=== PATIENT | female | born 1980 | race Hispanic/Latino ===

== ENCOUNTER 2016-06-14 13:48 | Emergency (ER) | payer OTHER ==
[~2016-06-14] VITALS: Ht 175.3 cm; Wt 90.7 kg
[~2016-06-14 13:48] MED LIST: IBUP80TA PO; MOM30SS PO; TYLE325T5 PO
[2016-06-14] MEDS ORDERED: vitamin d (14:05)
[2016-06-14] MEDS ORDERED: ASCO25TA PO (14:05)
[2016-06-14] MEDS ORDERED: MULT1TAB18 PO (14:05)
[2016-06-14] MEDS ORDERED: NORCO, ANEXSIA 5/325MG TABLET (HYDROcodone/ACETAMINOPHEN) PO ONE (14:30)
--- NOTE | 2016-06-14 14:55 | REP ---
Left hip two views: Comparison is the AP view of the pelvis dated 08/15/2015. Mineralization and joint space are normal. There is no fracture or dislocation. No calcifications or foreign bodies. There is an IUD in the pelvis, unchanged. Impression: Negative left hip. Signed by Fawad Steen MD 06/14/2016 02:46 P
[2016-06-14] MEDS ORDERED: ULTR50TA PO (14:56)
--- NOTE | 2016-06-14 15:02 | REP ---
LEFT KNEE SERIES: Two views AP and lateral. HISTORY: Trauma. FINDINGS: AP and lateral views of the left knee demonstrate normal bones, joints, and soft tissues. No fracture or subluxation is seen. IMPRESSION: Negative left knee radiographs. Two-view study. Signed by Elias Lucio MD 06/14/2016 03:18 P
[2016-06-14 15:07] VITALS: BP 116/83
== END 2016-06-14 15:11 | disposition home or self-care (01) ==
LOC: M ED 14:35
DX: S70.02XA Contusion of left hip, initial encounter (principal); S80.02XA Contusion of left knee, initial encounter; V43.52XA Car driver injured in collision with other type car in traffic accident, initial encounter; Y92.410 Unspecified street and highway as the place of occurrence of the external cause; Y93.9 Activity, unspecified; Y99.9 Unspecified external cause status; Z98.84 Bariatric surgery status; Z79.899 Other long term (current) drug therapy

== ENCOUNTER 2016-06-15 21:56 | Emergency (ER) | payer OTHER ==
[~2016-06-15] VITALS: Ht 175.3 cm; Wt 89.8 kg
[~2016-06-15 21:56] MED LIST changes: +ASCO25TA PO; +MULT1TAB18 PO; +ULTR50TA PO; +vitamin d
[2016-06-15 21:57] VITALS: BP 129/82
[2016-06-16] MEDS ORDERED: ONDANSETRON 4 MG ORAL DISINTEGRATING TAB (S0181) PO ONE (00:45)
[2016-06-16] MEDS ORDERED: NORCO, ANEXSIA 5/325MG TABLET (HYDROcodone/ACETAMINOPHEN) PO ONE (00:45)
[2016-06-16] MEDS ORDERED: HYDR-3713 PO (00:48)
[2016-06-16] MEDS ORDERED: CYCL10TA PO (00:50)
== END 2016-06-16 01:33 | disposition home or self-care (01) ==
LOC: M ED 22:52
DX: M54.2 Cervicalgia (principal); R51 Headache; S70.02XA Contusion of left hip, initial encounter; S80.02XA Contusion of left knee, initial encounter; V49.40XA Driver injured in collision with unspecified motor vehicles in traffic accident, initial encounter; Y92.410 Unspecified street and highway as the place of occurrence of the external cause; Y93.89 Activity, other specified; Y99.9 Unspecified external cause status

== ENCOUNTER → 2016-06-23 | Outpatient (CLI) | payer OTHER ==
[~2016-06-23] MED LIST changes: +CYCL10TA PO; +HYDR-3713 PO
--- NOTE | 2016-06-24 09:58 | REP ---
MRI LEFT KNEE: TECHNIQUE: Axial proton density fat saturation, sagittal proton density T2 STIR, water excitation, coronal proton density, proton density fat saturation. Menisci show no evidence of a tear. The cruciate and collateral ligaments are intact. The extensor mechanism is intact. Medial and lateral patellar retinacula are intact. There is very mild global chondromalacia without osteochrondral defect. There is no bone marrow edema or occult fracture. There is a normal amount of joint fluid. There is no popliteal cyst. IMPRESSION: Very mild global chondromalacia. No evidence of meniscal tear. No evidence of ligament tear. No acute abnormality. Signed by Fawad Paige MD 06/24/2016 01:24 P
== END ==
LOC: M RAD 17:17
PROVIDERS: ATTEND Family Medicine
DX: M25.562 Pain in left knee (principal)

== ENCOUNTER → 2016-10-24 | Outpatient (REF) | payer OTHER ==
[~2016-10-24] MED LIST changes: -ULTR50TA PO; +ULTR50TA8 PO
== END ==
LOC: M LAB REF 10:07
PROVIDERS: ATTEND Physician Assistant Medical
DX: N39.0 Urinary tract infection, site not specified (principal)

== ENCOUNTER 2017-04-28 09:45 | Emergency (ER) | payer OTHER ==
[2017-04-28] MEDS: KETOROLAC 60 MG/2 ML VIAL (J1885) IM (10:29)
== END 2017-04-28 10:50 | disposition home or self-care (01) ==
LOC: M ED 09:45
DX: M54.5 Low back pain (principal); M25.552 Pain in left hip; R29.6 Repeated falls; I10 Essential (primary) hypertension; Z98.84 Bariatric surgery status
CPT/HCPCS: J1885

== ENCOUNTER 2017-06-22 05:51 | Emergency (ER) | payer OTHER ==
[2017-06-22] MEDS: NITROGLYCERIN 0.4 MG SUBL TABLET SL (06:14)
[2017-06-22] MEDS: ASPIRIN 81 MG CHEW TABLET PO (06:14)
[2017-06-22 06:25] LABS: BASO % 0.4 % (0.0-1.0); EOS # 0.2 10^3/uL (0.0-0.50); EOS % 2.3 % (0.0-3.0); HEMATOCRIT 37.5 % (36.0-47.0); HEMOGLOBIN 11.9 g/dl (12.0-16.0); IMMATURE GRANULOCYTE % 0.3 % (0-3.0); LYMPH # 2.3 10^3/uL (1.5-4.5); LYMPH % 22.4 % (24.0-44.0); MEAN CORPUSCULAR HEMOGLOBIN 24.9 pg (27.0-33.0); MEAN CORPUSCULAR HGB CONC 31.7 g/dl (32.0-36.5); MEAN CORPUSCULAR VOLUME 78.6 fl (80.0-96.0); MONO # 0.5 10^3/uL (0.0-0.8); MONO % 4.5 % (0.0-5.0); NEUTROPHILS % 70.1 % (36.0-66.0); PLATELET COUNT, AUTOMATED 274 10^3/uL (150-450); RED BLOOD COUNT 4.77 10^6/uL (4.00-5.40); RED CELL DISTRIBUTION WIDTH 14.6 % (11.5-14.5)
[2017-06-22 06:40] LABS: INR 1.05; PROTHROMBIN TIME 13.8 SECONDS (12.4-14.5)
[2017-06-22 06:41] LABS: PARTIAL THROMBOPLASTIN TIME 28.2 SECONDS (26.8-37.9)
[2017-06-22 06:55] LABS: ALBUMIN 3.5 GM/DL (3.2-5.2); ALBUMIN/GLOBULIN RATIO 0.92 (1.00-1.93); ALKALINE PHOSPHATASE 146 U/L (45-117); ALT/SGPT 19 U/L (12-78); ANION GAP 6 MEQ/L (8-16); AST/SGOT 11 U/L (7-37); BILIRUBIN,DIRECT < 0.1 MG/DL (0.0-0.2); BILIRUBIN,TOTAL 0.3 MG/DL (0.2-1.0); BLOOD UREA NITROGEN 12 MG/DL (7-18); CALCIUM LEVEL 8.3 MG/DL (8.5-10.1); CARBON DIOXIDE LEVEL 25 MEQ/L (21-32); CHLORIDE LEVEL 111 MEQ/L (98-107); CK-MB VALUE MASS < 1.0 NG/ML (<3.6); CPK CREATINE PHOSPHOKINASE 66 U/L (26-192); CREATININE FOR GFR 0.76 MG/DL (0.55-1.30); GLOMERULAR FILTRATION RATE > 60.0 (>60); GLUCOSE, FASTING 113 MG/DL (70-100); LIPASE 132 U/L (73-393); MB/CK RELATIVE INDEX 1.51 (< OR =4); POTASSIUM SERUM 3.7 MEQ/L (3.5-5.1); SODIUM LEVEL 142 MEQ/L (136-145); TOTAL PROTEIN 7.3 GM/DL (6.4-8.2); TROPONIN I < 0.02 NG/ML (< 0.10)
[2017-06-22] MEDS: MORPHINE 4 MG/ML 1ML VIAL (J2270) IV (07:27)
[2017-06-22] MEDS: ONDANSETRON 4MG/2ML VIAL (J2405) IV (07:27)
[2017-06-22] MEDS: NS 1,000 ML IV (07:27)
[2017-06-22] MEDS ORDERED: ISOVUE-370 76% 100ML VIAL (Q9967) As Ordered (08:10)
[2017-06-22 08:24] LABS: LACTIC ACID SEPSIS PROTOCOL 2.1 MMOL/L (0.4-2.0)
== END 2017-06-22 10:36 | disposition home or self-care (01) ==
LOC: M ED 05:51
DX: R10.9 Unspecified abdominal pain (principal); R07.9 Chest pain, unspecified; M54.2 Cervicalgia; R11.2 Nausea with vomiting, unspecified; I10 Essential (primary) hypertension; Z98.84 Bariatric surgery status; Z79.899 Other long term (current) drug therapy
CPT/HCPCS: J2270

== ENCOUNTER 2018-01-16 12:56 | Emergency (ER) | payer OTHER ==
[2018-01-16] MEDS: NORCO, ANEXSIA 5/325MG TABLET (HYDROcodone/ACETAMINOPHEN) PO (13:54)
== END 2018-01-16 13:56 | disposition home or self-care (01) ==
LOC: M ED 12:56
DX: M25.552 Pain in left hip (principal); M06.9 Rheumatoid arthritis, unspecified; Z98.84 Bariatric surgery status
CPT/HCPCS: 81025

== ENCOUNTER → 2018-01-22 | Outpatient (REF) | payer OTHER | LOC: M LAB REF 12:34 | DX: M54.5 Low back pain (principal) | CPT/HCPCS: 87086 ==

== ENCOUNTER → 2018-03-16 | Outpatient (CLI) | payer OTHER ==
[~2018-03-16] MED LIST changes: +CAPS0.1C2 EX; +CARA1TAB6 PO; +NEXI40CA PO; +NORCOTAB PO; +PERC5TAB12 PO; +PRED20TA PO
--- NOTE | 2018-04-04 00:16 | ECWPNPC ---
PATIENT NAME: PHILLIP ANDINO : 1980 GENDER: FEMALE VISIT DATE: 03/16/2018 DISCHARGE DATE: 03/16/18 1439 VISIT LOCKED DATE TIME: PHYSICIAN: NII ELIZONDO MD RESOURCE: NII ELIZONDO MD REASON FOR APPOINTMENT 1. BACK PAIN- HAS NOT BEEN SEEN IN 2 YEARS HISTORY OF PRESENT ILLNESS DEPRESSION SCREENING: PHQ-2 IN LAST TWO WEEKS HAVE YOU BEEN BOTHERED BY LITTLE INTEREST OR PLEASURE IN DOING THINGSNO FEELING DOWN, DEPRESSED, OR HOPELESSNO HISTORY OF PRESENT ILLNESS: PAIN THE PATIENT DESCRIBES THE PAIN... 37 YEAR OLD FEMALE PATIENT WITH A HISTORY OF CHRONIC LOW BACK AND LEG PAIN. PATIENT DESCRIBES THE PAIN SHARP, STABBING, AND HAVING IT ALL DAY WITH A PAIN SCORE OF 6-9/10. THE PATIENT STATES THAT SHE HAS NUMBNESS AND LOSS OF SENSATIONS OVER UPPER EXTREMITIES. THE PATIENT STATES THAT IF SHE TOUCHES SOMETHING HOT, SHE IS NOT ABLE TO FEEL IT. THE PATIENT STATES THAT SHE ALSO HAS PROBLEMS SLEEPING. THE PATIENT STATES THAT SHE CANNOT TAKE CYMBALTA DUE TO IT CAUSES MENTAL CHANGES THAT LEAD TO SELF HARM. PATIENT DENIES UNEXPLAINABLE WEIGHT LOSS, FEVER, CHILLS, NEW CHANGES ON HER URINARY OR BOWEL CONTROL. FALL RISK SCREENING: SCREENING :NO FALLS IN THE PAST YEAR CURRENT MEDICATIONS TAKING MULTIVITAMINS TABLET CHEWABLE 2 ORALLY ONCE A DAY TAKING MIRENA 20 MCG/24HR INTRAUTERINE DEVICE INTRAUTERINE TAKING TYLENOL EXTRA STRENGTH 500 MG TABLET 1 TABLET NEEDED ORALLY EVERY 6 HRS, NOTES: PATIENT HAS BEEN TAKING 3 TABLETS EVERY 6 HOURS NOT-TAKING TIZANIDINE HCL 4 MG TABLET 1 TABLET NEEDED ORALLY THREE TIMES A DAY NOT-TAKING HYDROCODONE-ACETAMINOPHEN 5-325 MG TABLET 1 TABLET NEEDED ORALLY EVERY 6 HRS NOT-TAKING TIZANIDINE HCL 4 MG TABLET 1 TABLET NEEDED ORALLY EVERY 8 HRS MEDICATION LIST REVIEWED AND RECONCILED WITH THE PATIENT PAST MEDICAL HISTORY HTN ARTHRITIS HEADACHES OBESITY CHRONIC PAIN RHUMATOID ARTHRITIS ALLERGIES CYMBALTA: DEPRESSION AND SELF-HARM: SIDE EFFECTS SURGICAL HISTORY GASTRIC BYPASS [id number] CHOLECYSTECTOMY FAMILY HISTORY FATHER: , DIAGNOSED WITH HEART DISEASE MOTHER: ALIVE, DIAGNOSED WITH DIABETES, HEART DISEASE 1 SON(S) - HEALTHY. SOCIAL HISTORY GENERAL: TOBACCO USE ARE YOU A:NONSMOKER LUNG CANCER SCREENING SMOKING STATUS:NON SMOKER BMI CARE GOAL FOLLOW-UP ABOVE NORMAL BMI FOLLOW-UPDIETARY MANAGEMENT EDUCATION, GUIDANCE, AND COUNSELING ALCOHOL SCREENING DID YOU HAVE A DRINK CONTAINING ALCOHOL IN THE PAST YEAR?NO POINTS0 INTERPRETATIONNEGATIVE RECREATIONAL DRUG USE DRUG USE?NO CAFFEINE CAFFEINE USE?NO SEXUAL HX HAD SEX IN THE LAST 12 MONTHS (VAGINAL, ORAL, OR ANAL)?NO HIV / HEP-C SCREENING HIV TEST OFFERED TO PATIENT:YES DATE OFFERED:07/14/2016 TEST ACCEPTED:NO REASON:PATIENT DECLINED HEP-C TEST OFFERED TO PATIENT:YES DATE OFFERED:07/14/2016 TEST ACCEPTED:NO REASON:PATIENT DECLINED AMISH [id number] LANGUAGE LANGUAGES SPOKEN:SPANISH EDUCATION LEVEL OF EDUCATION:FINISHED COLLEGE LEARNING BARRIERS / SPECIAL NEEDS BARRIERS TO LEARNING?YES COMMENTS PT'S PRIMARY LANGUAGE IS ANDORRAN. PT IS ABLE TO COMMUNICATE IN SPANISH WELL. HEARING IMPAIRED?NO VISION IMPAIRED?NO COGNITIVELY IMPAIRED?NO READINESS TO LEARN?YES LEARNING PREFERENCES?NO DOMESTIC VIOLENCE NONE. 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 DIET: SMALL PORTIONS. EXERCISE: BEFORE ACCIDENT. OTHERS AT HOME: CHILD. PAIN CLINIC PFS, CLERGY, PUBLIC HEALTH REFERRALS PFS REFERRAL NEEDED?NO CLERGY REFERRAL NEEDED?NO PUBLIC HEALTH REFERRAL NEEDED?NO WAS THE PROVIDER NOTIFIED OF ANY PERTINENT INFO?NO HAS THE PATIENT BEEN EDUCATED REGARDING HIS/HER PLAN OF CARE?YES HAS THE PATIENT BEEN EDUCATED REGARDING PAIN, THE RISK FOR PAIN, THE IMPORTANCE OF EFFECTIVE PAIN MANAGEMENT, AND THE PAIN ASSESSMENT PROCESS?YES ADVANCE DIRECTIVE ADVANCE DIRECTIVE DISCUSSED WITH PATIENT:YES PT STATES SHE DOES NOT HAVE HCP AND DECLINES INFO AT THE MOMENT. ASSISTANCE OFFEREED WITH FILLING OUT THE FORM, BUT PATIENT DECLINES. 03/16/18 BV REVIEWED WITH PT 03/16/18 1346 BV. HOSPITALIZATION/MAJOR DIAGNOSTIC PROCEDURE ABOVE SURGERIES CHILDBIRTH REVIEW OF SYSTEMS REVIEWED BY: PROVIDER: NII ELIZONDO MD . CONSTITUTIONAL: ANY CHANGE IN YOUR MEDICAL CONDITION? NO . CHILLS NO . FEVER NO . INFECTION: DO YOU HAVE NEW INFECTIONS? NO . DO YOU HAVE HISTORY OF MRSA? NO . MUSCULOSKELETAL: ANY NEW PATTERNS OF PAIN OR NUMBNESS? PT COMPLAINS OF NUMBNESS AND LOSS OF SENSATION IN BILATERAL HANDS. STATES THIS HAS BEEN GOING ON FOR THE PAST YEAR. . GASTROENTEROLOGY: ANY NEW CHANGE IN BOWEL CONTROL? NO . GENITOURINARY: ANY NEW CHANGE IN BLADDER CONTROL? NO . IS THERE A CHANCE YOU COULD BE ? NO . HEMATOLOGY/LYMPH: DO YOU TAKE ANY BLOOD THINNERS? (FOR EXAMPLE- COUMADIN, PLAVIX, AGGRENOX, PLATEL, PRADAXA, OR XARELTO) NO . WHEN WAS YOUR LAST DOSE? DATE: TIME: . NEUROLOGY: HAVE YOU FALLEN IN THE PAST 6 MONTHS? NO . ANY NEW EXTREMITY NUMBNESS OR WEAKNESS? NO . CARDIOLOGY: DO YOU HAVE A PACEMAKER OR DEFIBRILLATOR? NO . RESPIRATORY: HAVE YOU BEEN SICK IN THE PAST WEEK? NO . FEVER NO . FLU LIKE SYMPTOMS? NO . COUGH PT COMPLAINS OF COUGH FOR THE PAST 2 WEEKS. STATES SHE SEEMS TO BE GETTING OVER IT. DESCRIBES IT DRY, NON PRODUCTIVE. . INTEGUMENTARY: DO YOU HAVE ANY RASHES OR OPEN SORES? NO . ALLERGIC/IMMUNO: ARE YOU ALLERGIC TO SHELLFISH OR IV DYE? NO . ANY NEW ALLERGIES? NO . PSYCHIATRIC: DO YOU HAVE THOUGHTS OF HURTING YOURSELF OR SOMEONE ELSE? NO . ARE YOU ABUSED, NEGLECTED, OR IN AN UNSAFE ENVIRONMENT? NO . ENDOCRINOLOGY: ARE YOU DIABETIC? NO . OTHER: DO YOU NEED ANY PRESCRIPTIONS? NO . IF YES, PLEASE LIST: ____ . ANY NEW PROBLEMS WITH YOUR MEDICATIONS? NO . WHEN DID YOU LAST EAT? ____ . WHEN DID YOU LAST DRINK? ____ . WHAT DID YOU LAST DRINK? ____ . NAME OF PERSON DRIVING YOU HOME? ____ . DO YOU HAVE ANY OTHER QUESTIONS OR CONCERNS NO . VITAL SIGNS WT 239.2 LBS, HT 69", BMI 35.32 INDEX, BP 136/92 MM HG, HR 89 /MIN, RR 18 /MIN, TEMP 98.0 F, OXYGEN SAT % 99%, NA INITIALS SC 13:24, REVIEWED BY: BV. EXAMINATION GENERAL EXAMINATION: PATIENT IS ALERT O X 3 AND COOPERATIVE. LUNGS CLEAR, TO AUSCULTATION. HEART: NO MURMURS OR GALLOPS; FACIAL CRANIAL NERVES ARE GROSSLY NORMAL. GOOD SYMMETRY OF FACIAL MUSCLE MOVEMENT. NORMAL VISUAL WHITLEY. TENDERNESS OVER PARASPINAL MUSCLE GROUP OF THE LOW BACK. RIGHT LEG IS WEAKER THAN THE LEFT AT EXTENSION AND FLEXION. STRAIGHT LEG RAISE OF THE RIGHT LEG IS POSITIVE AT 60 DEGREES FOR RADICULOPATHY. MRI OF THE LUMBAR SPINE DONE ON 05/11/15 SHOWS A BULGING DISC AND COMPRESSION OF THE THECAL SAC AT L4-5. ASSESSMENTS INTERVERTEBRAL DISC DISORDER WITH RADICULOPATHY OF LUMBAR REGION - M51.16 (PRIMARY) LOW BACK PAIN - M54.5 MYALGIA, OTHER SITE - M79.18 TREATMENT INTERVERTEBRAL DISC DISORDER WITH RADICULOPATHY OF LUMBAR REGION CLINICAL NOTES: WE DISCUSSED SEVERAL ISSUES WITH MRS. ANDINO'S PAIN MANAGEMENT CASE. I WAS WITH THE PATIENT FOR OVER 25 MINUTES AND MORE THAN HALF THE TIME WAS DISCUSSING THE PATIENT'S OPTIONS FOR PAIN MANAGEMENT. AT THIS TIME, I WOULD LIKE TO START THE PATIENT ON TIZANIDINE AND GABAPENTIN TO HELP WITH SLEEPING AND AID IN PAIN RELIEF. I WOULD ALSO LIKE TO REFER THE PATIENT FOR A RHEUMATOLOGIC CONSULT. I WOULD ALSO LIKE FOR THE PATIENT TO CONSIDER A TRIGGER POINT INJECTION OR LUMBAR EPIDURAL IN THE FUTURE. THE PATIENT WILL FOLLOW UP WITH ME IN 2-3 WEEKS. INSTRUCTIONS WERE GIVEN, QUESTIONS WERE ANSWERED, PATIENT REPORTS UNDERSTANDING AND AGREES WITH THE PLAN. I, MARIE BAKER, DOCUMENTED THE ABOVE INFORMATION ACTING A SCRIBE FOR DR. ELIZONDO. I HAVE REVIEWED THE ABOVE DOCUMENT, WRITTEN BY MARIE BAKER SCRIBAbdulaziz AND I VERIFY THAT IT IS ACCURATE. OTHERS REFILL TIZANIDINE HCL TABLET, 4 MG, 1 TABLET NEEDED, ORALLY, BEFORE BEDTIME MAY REPEAT IN 5 HRS, 30 DAYS, 50, REFILLS 0 START GABAPENTIN CAPSULE, 100 MG, 1 CAPSULE, ORALLY FOR PAIN, THREE TIMES A DAY, 30 DAY(S), 90, REFILLS 1 PROCEDURE CODES FA211 ESTABILISHED PATIENT [facility] CHARGE G8427 CURRENT MEDS W/DOSAGES DOCUMENTED G8730 PAIN ASSESS POS TOOL F/U PLAN DOC DISPOSITION & COMMUNICATION FOLLOW UP 3 WEEKS ELECTRONICALLY SIGNED BY NII ELIZONDO MD, ON 04/03/2018 AT 05:41 PM EST DISCLAIMER : THIS IS A VISIT SUMMARY EXTRACTED FROM THE [employer] CHART. IT IS NOT A COPY OF THE [employer] PROGRESS NOTE. MTDD
== END ==
LOC: M PAIN 13:30
PROVIDERS: ATTEND Anesthesiology
DX: G89.29 Other chronic pain (principal); M51.16 Intervertebral disc disorders with radiculopathy, lumbar region; M54.5 Low back pain; M79.18 Myalgia, other site; I10 Essential (primary) hypertension; R51 Headache; M06.9 Rheumatoid arthritis, unspecified; E66.9 Obesity, unspecified; M19.90 Unspecified osteoarthritis, unspecified site; Z68.35 Body mass index [BMI] 35.0-35.9, adult; Z79.899 Other long term (current) drug therapy; Z88.8 Allergy status to other drugs, medicaments and biological substances

== ENCOUNTER → 2018-04-05 | Outpatient (CLI) | payer OTHER ==
--- NOTE | 2018-04-21 23:28 | ECWPNPC ---
PATIENT NAME: PHILLIP ANDINO : 1980 GENDER: FEMALE VISIT DATE: 04/05/2018 DISCHARGE DATE: 04/05/18 1627 VISIT LOCKED DATE TIME: PHYSICIAN: NII ELIZONDO MD RESOURCE: NII ELIZONDO MD REASON FOR APPOINTMENT 1. F/U BACK PAIN HISTORY OF PRESENT ILLNESS HISTORY OF PRESENT ILLNESS: PAIN THE PATIENT DESCRIBES THE PAIN... 37 YEAR OLD FEMALE PATIENT WITH A HISTORY OF CHRONIC LOW BACK PAIN. THE PATIENT DESCRIBES THE PAIN SORE, SHARP, STABBING, AND LASTING ALL DAY WITH A PAIN SCORE OF 7-10/10 DEPENDING ON PHYSICAL ACTIVITY. THE PATIENT SAYS HER MAIN PAIN IS IN HER LOW BACK, BUT SHE ALSO HAS PAIN IN HER SHOULDER AND KNEES. THE PATIENT STATES THAT SHE HAS DIFFICULTY DOING DAILY ACTIVITIES SUCH CLEANING, COOKING, AND MOVING AROUND DUE TO THESE PAINS. THE PATIENT IS CURRENTLY USING GABAPENTIN AND TIZANIDINE, BUT SAYS THEY HAVE NOT BEEN HELPING MUCH. THE PATIENT SAYS THAT SHE WAS USING AN OLD HYDROCODONE PRESCRIPTION OF HERS THIS PAST WEEK TO MANAGE THE PAIN. THE PATIENT HAS A HISTORY OF GASTRIC BYPASS. PATIENT DENIES UNEXPLAINABLE WEIGHT LOSS, FEVER, CHILLS, NEW CHANGES ON HER URINARY OR BOWEL CONTROL. FALL RISK SCREENING: SCREENING :NO FALLS IN THE PAST YEAR CURRENT MEDICATIONS TAKING TIZANIDINE HCL 4 MG TABLET 1 TABLET NEEDED ORALLY BEFORE BEDTIME MAY REPEAT IN 5 HRS TAKING GABAPENTIN 100 MG CAPSULE 1 CAPSULE ORALLY FOR PAIN THREE TIMES A DAY TAKING MULTIVITAMINS TABLET CHEWABLE 2 ORALLY ONCE A DAY TAKING MIRENA 20 MCG/24HR INTRAUTERINE DEVICE INTRAUTERINE TAKING TYLENOL EXTRA STRENGTH 500 MG TABLET 1 TABLET NEEDED ORALLY EVERY 6 HRS, NOTES: PATIENT HAS BEEN TAKING 3 TABLETS EVERY 6 HOURS NOT-TAKING HYDROCODONE-ACETAMINOPHEN 5-325 MG TABLET 1 TABLET NEEDED ORALLY EVERY 6 HRS NOT-TAKING TIZANIDINE HCL 4 MG TABLET 1 TABLET NEEDED ORALLY EVERY 8 HRS MEDICATION LIST REVIEWED AND RECONCILED WITH THE PATIENT PAST MEDICAL HISTORY HTN ARTHRITIS HEADACHES OBESITY CHRONIC PAIN RHUMATOID ARTHRITIS ALLERGIES CYMBALTA: DEPRESSION AND SELF-HARM: SIDE EFFECTS SURGICAL HISTORY GASTRIC BYPASS [id number] CHOLECYSTECTOMY FAMILY HISTORY FATHER: , DIAGNOSED WITH HEART DISEASE MOTHER: ALIVE, DIAGNOSED WITH DIABETES, HEART DISEASE 1 SON(S) - HEALTHY. SOCIAL HISTORY GENERAL: TOBACCO USE ARE YOU A:NONSMOKER LUNG CANCER SCREENING SMOKING STATUS:NON SMOKER BMI CARE GOAL FOLLOW-UP ABOVE NORMAL BMI FOLLOW-UPDIETARY MANAGEMENT EDUCATION, GUIDANCE, AND COUNSELING ALCOHOL SCREENING DID YOU HAVE A DRINK CONTAINING ALCOHOL IN THE PAST YEAR?NO POINTS0 INTERPRETATIONNEGATIVE RECREATIONAL DRUG USE DRUG USE?NO CAFFEINE CAFFEINE USE?NO SEXUAL HX HAD SEX IN THE LAST 12 MONTHS (VAGINAL, ORAL, OR ANAL)?NO HIV / HEP-C SCREENING HIV TEST OFFERED TO PATIENT:YES DATE OFFERED:07/14/2016 TEST ACCEPTED:NO REASON:PATIENT DECLINED HEP-C TEST OFFERED TO PATIENT:YES DATE OFFERED:07/14/2016 TEST ACCEPTED:NO REASON:PATIENT DECLINED HINDUISM [id number] QUAKER LANGUAGE LANGUAGES SPOKEN:NIGERIEN EDUCATION LEVEL OF EDUCATION:FINISHED COLLEGE LEARNING BARRIERS / SPECIAL NEEDS BARRIERS TO LEARNING?YES COMMENTS PT'S PRIMARY LANGUAGE IS SAUDI ARABIAN. PT IS ABLE TO COMMUNICATE IN NIGERIEN WELL. HEARING IMPAIRED?NO VISION IMPAIRED?NO COGNITIVELY IMPAIRED?NO READINESS TO LEARN?YES LEARNING PREFERENCES?NO DOMESTIC VIOLENCE NONE. 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 DIET: SMALL PORTIONS. EXERCISE: BEFORE ACCIDENT. OTHERS AT HOME: CHILD. PAIN CLINIC PFS, CLERGY, PUBLIC HEALTH REFERRALS PFS REFERRAL NEEDED?NO CLERGY REFERRAL NEEDED?NO PUBLIC HEALTH REFERRAL NEEDED?NO WAS THE PROVIDER NOTIFIED OF ANY PERTINENT INFO?NO HAS THE PATIENT BEEN EDUCATED REGARDING HIS/HER PLAN OF CARE?YES HAS THE PATIENT BEEN EDUCATED REGARDING PAIN, THE RISK FOR PAIN, THE IMPORTANCE OF EFFECTIVE PAIN MANAGEMENT, AND THE PAIN ASSESSMENT PROCESS?YES ADVANCE DIRECTIVE ADVANCE DIRECTIVE DISCUSSED WITH PATIENT:YES DECLINED REVIEWED WITH PT 03/16/18 1346 BV. HOSPITALIZATION/MAJOR DIAGNOSTIC PROCEDURE ABOVE SURGERIES CHILDBIRTH REVIEW OF SYSTEMS REVIEWED BY: PROVIDER: NII ELIZONDO MD . CONSTITUTIONAL: ANY CHANGE IN YOUR MEDICAL CONDITION? NO . CHILLS NO . FEVER NO . INFECTION: DO YOU HAVE NEW INFECTIONS? NO . DO YOU HAVE HISTORY OF MRSA? NO . MUSCULOSKELETAL: ANY NEW PATTERNS OF PAIN OR NUMBNESS? NO . GASTROENTEROLOGY: ANY NEW CHANGE IN BOWEL CONTROL? NO . GENITOURINARY: ANY NEW CHANGE IN BLADDER CONTROL? NO . IS THERE A CHANCE YOU COULD BE ? NO . HEMATOLOGY/LYMPH: DO YOU TAKE ANY BLOOD THINNERS? (FOR EXAMPLE- COUMADIN, PLAVIX, AGGRENOX, PLATEL, PRADAXA, OR XARELTO) NO . WHEN WAS YOUR LAST DOSE? DATE: TIME: . NEUROLOGY: HAVE YOU FALLEN IN THE PAST 6 MONTHS? NO . ANY NEW EXTREMITY NUMBNESS OR WEAKNESS? NO . CARDIOLOGY: DO YOU HAVE A PACEMAKER OR DEFIBRILLATOR? NO . RESPIRATORY: HAVE YOU BEEN SICK IN THE PAST WEEK? NO . FEVER NO . FLU LIKE SYMPTOMS? NO . COUGH NO . INTEGUMENTARY: DO YOU HAVE ANY RASHES OR OPEN SORES? NO . ALLERGIC/IMMUNO: ARE YOU ALLERGIC TO SHELLFISH OR IV DYE? NO . ANY NEW ALLERGIES? NO . PSYCHIATRIC: DO YOU HAVE THOUGHTS OF HURTING YOURSELF OR SOMEONE ELSE? NO . ARE YOU ABUSED, NEGLECTED, OR IN AN UNSAFE ENVIRONMENT? NO . ENDOCRINOLOGY: ARE YOU DIABETIC? NO . OTHER: DO YOU NEED ANY PRESCRIPTIONS? NO . IF YES, PLEASE LIST: ____ . ANY NEW PROBLEMS WITH YOUR MEDICATIONS? NO . WHEN DID YOU LAST EAT? ____ . WHEN DID YOU LAST DRINK? ____ . WHAT DID YOU LAST DRINK? ____ . NAME OF PERSON DRIVING YOU HOME? ____ . DO YOU HAVE ANY OTHER QUESTIONS OR CONCERNS NO . VITAL SIGNS WT 235.8 LBS, HT 69", BMI 34.82 INDEX, BP 161/96 MM HG, HR 89 /MIN, RR 16 /MIN, TEMP 98.6 F, OXYGEN SAT % 100%, NA INITIALS SC 15:12, REVIEWED BY: EM. EXAMINATION GENERAL EXAMINATION: PATIENT IS ALERT O X 3 AND COOPERATIVE. TENDERNESS OVER THE SHOULDER, LOW BACK, AND KNEE AREAS. 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 ASSESSMENTS PAIN OF MULTIPLE SITES - R52 (PRIMARY) OTHER CHRONIC PAIN - G89.29 LOW BACK PAIN - M54.5 MYALGIA, OTHER SITE - M79.18 TREATMENT PAIN OF MULTIPLE SITES CLINICAL NOTES: WE DISCUSSED SEVERAL ISSUES WITH MRS. ANDINO'S PAIN MANAGEMENT CASE. I WILL INCREASE THE GABAPENTIN TO 300 MG AND THE TIZANIDINE TO 6 MG. I WILL ALSO START THE PATIENT ON TYLENOL WITH CODEINE TO TRY TO GET HER PAIN UNDER CONTROL. ISTOP _[id number] WAS REVIEWED. THE PATIENT WILL SIGN A NARCOTIC AGREEMENT AND WE WILL DO A URINE TOXICOLOGY TODAY. THE PATIENT WILL FOLLOW UP IN 3 TO 4 WEEKS. INSTRUCTIONS WERE GIVEN, QUESTIONS WERE ANSWERED, PATIENT REPORTS UNDERSTANDING AND AGREES WITH THE PLAN. I, GUILLE SRIVASTAVA, DOCUMENTED THE ABOVE INFORMATION ACTING A SCRIBE FOR DR. ELIZONDO. I HAVE REVIEWED THE ABOVE DOCUMENT, WRITTEN BY GUILLE RANGEL AND I VERIFY THAT IT IS ACCURATE. OTHERS REFILL TIZANIDINE HCL CAPSULE, 6 MG, 1 TABLET NEEDED, ORALLY, BEFORE BEDTIME MAY REPEAT IN 6 HRS, 30 DAYS, 50, REFILLS 0 REFILL GABAPENTIN CAPSULE, 300 MG, 1 CAPSULE, ORALLY FOR PAIN, THREE TIMES A DAY, 30 DAYS, 90, REFILLS 0 START ACETAMINOPHEN-CODEINE TABLET, 300-15 MG, 1 TO 2 TABLET NEEDED, ORALLY FOR PAIN, EVERY 6 HRS MDD 4, 21 DAYS, 70, REFILLS 0 PROCEDURE CODES FA211 ESTABILISHED PATIENT [facility] CHARGE G8427 CURRENT MEDS W/DOSAGES DOCUMENTED G8730 PAIN ASSESS POS TOOL F/U PLAN DOC DISPOSITION & COMMUNICATION ELECTRONICALLY SIGNED BY NII ELIZONDO MD, ON 04/21/2018 AT 09:04 PM EST DISCLAIMER : THIS IS A VISIT SUMMARY EXTRACTED FROM THE [employer] CHART. IT IS NOT A COPY OF THE [employer] PROGRESS NOTE. MTDD
== END ==
LOC: M PAIN 15:15
PROVIDERS: ATTEND Anesthesiology
DX: M54.5 Low back pain (principal); G89.29 Other chronic pain; M79.18 Myalgia, other site; I10 Essential (primary) hypertension; M19.90 Unspecified osteoarthritis, unspecified site; M06.9 Rheumatoid arthritis, unspecified; Z79.899 Other long term (current) drug therapy; Z88.8 Allergy status to other drugs, medicaments and biological substances; Z90.49 Acquired absence of other specified parts of digestive tract; Z98.84 Bariatric surgery status

== ENCOUNTER → 2018-04-19 | Outpatient (CLI) | payer OTHER ==
--- NOTE | 2018-04-22 23:19 | ECWPNPC ---
PATIENT NAME: PHILLIP ANDINO : 1980 GENDER: FEMALE VISIT DATE: 04/19/2018 DISCHARGE DATE: 04/19/18925 VISIT LOCKED DATE TIME: PHYSICIAN: NII ELIZONDO MD RESOURCE: NII ELIZONDO MD REASON FOR APPOINTMENT 1. PER DR Humphrey HISTORY OF PRESENT ILLNESS HISTORY OF PRESENT ILLNESS: PAIN THE PATIENT DESCRIBES THE PAIN... 37 YEAR OLD FEMALE PATIENT WITH A HISTORY OF CHRONIC MULTIPLE BODY PAIN. THE PATIENT DESCRIBES THE PAIN SORE, SHARP, STABBING, AND LASTING ALL DAY WITH A PAIN SCORE OF 7-10/10 DEPENDING ON PHYSICAL ACTIVITY. THE PATIENT SAYS HER MAIN PAIN IS IN HER LOW BACK AND JOINTS INCLUDING HER SHOULDER,WRITS AND KNEES. THE PATIENT STATES THAT SHE HAS DIFFICULTY DOING DAILY ACTIVITIES SUCH CLEANING, COOKING, AND MOVING AROUND DUE TO THESE PAINS. THE PATIENT IS CURRENTLY USING GABAPENTIN AND TIZANIDINE, BUT SAYS THEY HAVE NOT BEEN HELPING MUCH. SHE TRIED TYLENOL WITH CODEINE AND EXPRESSED THIS MEDICATION DID NOT HELP HER. ACCORDING TO HER SHE HAS TRIED TRAMADOL AND NUCYNTA WITH OUT PAIN RELIEF. THE PATIENT SAYS THAT SHE WAS USING AN OLD HYDROCODONE PRESCRIPTION OF HERS THIS PAST WEEK TO MANAGE THE PAIN. THE PATIENT HAS A HISTORY OF GASTRIC BYPASS. PATIENT DENIES UNEXPLAINABLE WEIGHT LOSS, FEVER, CHILLS, NEW CHANGES ON HER URINARY OR BOWEL CONTROL. FALL RISK SCREENING: SCREENING :NO FALLS IN THE PAST YEAR CURRENT MEDICATIONS TAKING GABAPENTIN 300 MG CAPSULE 1 CAPSULE ORALLY FOR PAIN THREE TIMES A DAY TAKING ACETAMINOPHEN-CODEINE 300-15 MG TABLET 1 TO 2 TABLET NEEDED ORALLY FOR PAIN EVERY 6 HRS MDD 4 TAKING TIZANIDINE HCL 6 MG CAPSULE 1 TABLET NEEDED ORALLY BEFORE BEDTIME MAY REPEAT IN 6 HRS TAKING MULTIVITAMINS TABLET CHEWABLE 2 ORALLY ONCE A DAY TAKING MIRENA 20 MCG/24HR INTRAUTERINE DEVICE INTRAUTERINE TAKING TYLENOL EXTRA STRENGTH 500 MG TABLET 1 TABLET NEEDED ORALLY EVERY 6 HRS, NOTES: PATIENT HAS BEEN TAKING 3 TABLETS EVERY 6 HOURS NOT-TAKING HYDROCODONE-ACETAMINOPHEN 5-325 MG TABLET 1 TABLET NEEDED ORALLY EVERY 6 HRS NOT-TAKING TIZANIDINE HCL 4 MG TABLET 1 TABLET NEEDED ORALLY EVERY 8 HRS MEDICATION LIST REVIEWED AND RECONCILED WITH THE PATIENT PAST MEDICAL HISTORY HTN ARTHRITIS HEADACHES OBESITY CHRONIC PAIN RHUMATOID ARTHRITIS ALLERGIES CYMBALTA: DEPRESSION AND SELF-HARM: SIDE EFFECTS SURGICAL HISTORY GASTRIC BYPASS [id number] CHOLECYSTECTOMY FAMILY HISTORY FATHER: , DIAGNOSED WITH HEART DISEASE MOTHER: ALIVE, DIAGNOSED WITH DIABETES, HEART DISEASE 1 SON(S) - HEALTHY. SOCIAL HISTORY GENERAL: TOBACCO USE ARE YOU A:NONSMOKER LUNG CANCER SCREENING SMOKING STATUS:NON SMOKER BMI CARE GOAL FOLLOW-UP ABOVE NORMAL BMI FOLLOW-UPDIETARY MANAGEMENT EDUCATION, GUIDANCE, AND COUNSELING ALCOHOL SCREENING DID YOU HAVE A DRINK CONTAINING ALCOHOL IN THE PAST YEAR?NO POINTS0 INTERPRETATIONNEGATIVE RECREATIONAL DRUG USE DRUG USE?NO CAFFEINE CAFFEINE USE?NO SEXUAL HX HAD SEX IN THE LAST 12 MONTHS (VAGINAL, ORAL, OR ANAL)?NO HIV / HEP-C SCREENING HIV TEST OFFERED TO PATIENT:YES DATE OFFERED:07/14/2016 TEST ACCEPTED:NO REASON:PATIENT DECLINED HEP-C TEST OFFERED TO PATIENT:YES DATE OFFERED:07/14/2016 TEST ACCEPTED:NO REASON:PATIENT DECLINED EVANGELICAL [id number] [employer] LANGUAGES SPOKEN:GUYANESE EDUCATION LEVEL OF EDUCATION:FINISHED COLLEGE LEARNING BARRIERS / SPECIAL NEEDS BARRIERS TO LEARNING?YES COMMENTS PT'S PRIMARY LANGUAGE IS GREENLANDIC. PT IS ABLE TO COMMUNICATE IN GUYANESE WELL. HEARING IMPAIRED?NO VISION IMPAIRED?NO COGNITIVELY IMPAIRED?NO READINESS TO LEARN?YES LEARNING PREFERENCES?NO DOMESTIC VIOLENCE NONE. 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 DIET: SMALL PORTIONS. EXERCISE: BEFORE ACCIDENT. OTHERS AT HOME: CHILD. PAIN CLINIC PFS, CLERGY, PUBLIC HEALTH REFERRALS PFS REFERRAL NEEDED?NO CLERGY REFERRAL NEEDED?NO PUBLIC HEALTH REFERRAL NEEDED?NO WAS THE PROVIDER NOTIFIED OF ANY PERTINENT INFO?NO HAS THE PATIENT BEEN EDUCATED REGARDING HIS/HER PLAN OF CARE?YES HAS THE PATIENT BEEN EDUCATED REGARDING PAIN, THE RISK FOR PAIN, THE IMPORTANCE OF EFFECTIVE PAIN MANAGEMENT, AND THE PAIN ASSESSMENT PROCESS?YES ADVANCE DIRECTIVE ADVANCE DIRECTIVE DISCUSSED WITH PATIENT:YES DECLINED HCP INFORMATION REVIEWED WITH PT 03/16/18 1346 BVREVIEWED WITH PATIENT 04/19/18 1535 JS. HOSPITALIZATION/MAJOR DIAGNOSTIC PROCEDURE ABOVE SURGERIES CHILDBIRTH REVIEW OF SYSTEMS REVIEWED BY: PROVIDER: NII ELIZONDO MD . CONSTITUTIONAL: ANY CHANGE IN YOUR MEDICAL CONDITION? NO . CHILLS NO . FEVER NO . INFECTION: DO YOU HAVE NEW INFECTIONS? NO . DO YOU HAVE HISTORY OF MRSA? NO . MUSCULOSKELETAL: ANY NEW PATTERNS OF PAIN OR NUMBNESS? YES, STATES INCREASE IN FREQUENCY AND INTENSITY OF PAIN . GASTROENTEROLOGY: ANY NEW CHANGE IN BOWEL CONTROL? NO . GENITOURINARY: ANY NEW CHANGE IN BLADDER CONTROL? NO . IS THERE A CHANCE YOU COULD BE ? NO . HEMATOLOGY/LYMPH: DO YOU TAKE ANY BLOOD THINNERS? (FOR EXAMPLE- COUMADIN, PLAVIX, AGGRENOX, PLATEL, PRADAXA, OR XARELTO) NO . WHEN WAS YOUR LAST DOSE? DATE: TIME: . NEUROLOGY: HAVE YOU FALLEN IN THE PAST 6 MONTHS? NO . ANY NEW EXTREMITY NUMBNESS OR WEAKNESS? NO . CARDIOLOGY: DO YOU HAVE A PACEMAKER OR DEFIBRILLATOR? NO . RESPIRATORY: HAVE YOU BEEN SICK IN THE PAST WEEK? NO . FEVER NO . FLU LIKE SYMPTOMS? NO . COUGH NO . INTEGUMENTARY: DO YOU HAVE ANY RASHES OR OPEN SORES? NO . ALLERGIC/IMMUNO: ARE YOU ALLERGIC TO SHELLFISH OR IV DYE? NO . ANY NEW ALLERGIES? NO . PSYCHIATRIC: DO YOU HAVE THOUGHTS OF HURTING YOURSELF OR SOMEONE ELSE? NO . ARE YOU ABUSED, NEGLECTED, OR IN AN UNSAFE ENVIRONMENT? NO . ENDOCRINOLOGY: ARE YOU DIABETIC? NO . OTHER: DO YOU NEED ANY PRESCRIPTIONS? YES . IF YES, PLEASE LIST: ____STATES SHE WOULD LIKE NEW MEDICATIONS . ANY NEW PROBLEMS WITH YOUR MEDICATIONS? NO . WHEN DID YOU LAST EAT? ____ . WHEN DID YOU LAST DRINK? ____ . WHAT DID YOU LAST DRINK? ____ . NAME OF PERSON DRIVING YOU HOME? ____ . DO YOU HAVE ANY OTHER QUESTIONS OR CONCERNS NO . VITAL SIGNS WT 237.6 LBS, HT 69", BMI 35.08 INDEX, BP 161/88 MM HG, HR 87 /MIN, RR 18 /MIN, TEMP 98.1 F, OXYGEN SAT % 93%, SAFE IN ENV? (Y/N) YES, NA INITIALS AW 1421, REVIEWED BY: ANTONIO. EXAMINATION GENERAL EXAMINATION: PATIENT IS ALERT O X 3 AND COOPERATIVE. THE PT HAS DIFFICULTIES MOVING. TENDERNESS OVER THE SHOULDER, LOW BACK, AND KNEE AREAS. 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 ASSESSMENTS ARTHRALGIA, UNSPECIFIED JOINT - M25.50 (PRIMARY) MYALGIA - M79.10 TOTAL BODY PAIN - R52 TREATMENT ARTHRALGIA, UNSPECIFIED JOINT CLINICAL NOTES: WE DISCUSSED SEVERAL ISSUES WITH MRS. ANDINO'S PAIN MANAGEMENT CASE. I WILL INCREASE THE GABAPENTIN TO 300 MG TID AND CONTINUE TIZANIDINE 6 MG PO AT NIGHT. I HAVE A LONG CONVERSATION WITH THE PATIENT IN THE USE OF OPIOIDS. I WAS WITH THE PATIENT OVER 30 MINUTES IN TODAY VISIT AND MORE OF HALF OF THE TIME WAS DEDICATED TO CLARIFICATION OF THE USE OF OPIOIDS, EXPECTATIONS FROM OUR CLINIC, POSSIBLE COMPLICATIONS AMONG OTHERS. I WILL ALSO START THE PATIENT ON HYDROCODONE TO TRY TO GET HER PAIN UNDER CONTROL. ISTOP WAS REVIEWED. WE WILL CHECK ON THE STATUS OF THE RHEUMATOLOGY CONSULT. THE PATIENT WILL FOLLOW UP IN 3 TO 4 WEEKS. INSTRUCTIONS WERE GIVEN, QUESTIONS WERE ANSWERED, PATIENT REPORTS UNDERSTANDING AND AGREES WITH THE PLAN. OTHERS REFILL GABAPENTIN CAPSULE, 300 MG, 1 CAPSULE, ORALLY FOR PAIN, THREE TIMES A DAY, 30 DAYS, 90, REFILLS 0 REFILL HYDROCODONE-ACETAMINOPHEN TABLET, 5-325 MG, 1 TABLET NEEDED, ORALLY, EVERY 12 HOURS NEEDED MDD2, 7 DAY(S), 14, REFILLS 0 REFILL TIZANIDINE HCL CAPSULE, 6 MG, 1 TABLET NEEDED, ORALLY, BEFORE BEDTIME MAY REPEAT IN 6 HRS, 30 DAYS, 50, REFILLS 0 PROCEDURE CODES FA211 ESTABILISHED PATIENT [facility] CHARGE DISPOSITION & COMMUNICATION FOLLOW UP 2 WEEKS ELECTRONICALLY SIGNED BY NII ELIZONDO MD, ON 04/22/2018 AT 12:49 PM EST DISCLAIMER : THIS IS A VISIT SUMMARY EXTRACTED FROM THE [employer] CHART. IT IS NOT A COPY OF THE [employer] PROGRESS NOTE. MTDD
== END ==
LOC: M PAIN 14:15
PROVIDERS: ATTEND Anesthesiology
DX: M25.50 Pain in unspecified joint (principal); M79.10 Myalgia, unspecified site; I10 Essential (primary) hypertension; M06.9 Rheumatoid arthritis, unspecified; E66.01 Morbid (severe) obesity due to excess calories; Z68.35 Body mass index [BMI] 35.0-35.9, adult; Z79.899 Other long term (current) drug therapy; Z88.8 Allergy status to other drugs, medicaments and biological substances; Z98.84 Bariatric surgery status

== ENCOUNTER → 2018-05-14 | Outpatient (CLI) | payer OTHER ==
--- NOTE | 2018-05-31 00:28 | ECWPNPC ---
PATIENT NAME: PHILLIP ANDINO : 1980 GENDER: FEMALE VISIT DATE: 05/14/2018 DISCHARGE DATE: 05/14/18 1520 VISIT LOCKED DATE TIME: PHYSICIAN: NII ELIZONDO MD RESOURCE: NII ELIZONDO MD REASON FOR APPOINTMENT 1. F/U BACK PAIN HISTORY OF PRESENT ILLNESS HISTORY OF PRESENT ILLNESS: PAIN THE PATIENT DESCRIBES THE PAIN... 38 YEAR OLD FEMALE PATIENT WITH A HISTORY OF CHRONIC MULTIPLE BODY PAIN. THE PATIENT DESCRIBES THE PAIN SORE, TENDER, SHARP, STABBING, AND CONTINUOUS WITH A PAIN SCORE OF 8/10. THE PATIENT SAYS HER PAIN IS MAINLY LOCATED IN HER LOW BACK AREA, SHOULDERS, WRISTS, AND KNEES. THE PATIENT IS CURRENTLY USING TIZANIDINE, GABAPENTIN, AND HYDROCODONE TO AID IN PAIN RELIEF. THE PATIENT SAYS THAT THE GABAPENTIN AND HYDROCODONE HAVE NOT BEEN HELPING MUCH. PATIENT DENIES UNEXPLAINABLE WEIGHT LOSS, FEVER, CHILLS, NEW CHANGES ON HER URINARY OR BOWEL CONTROL. FALL RISK SCREENING: SCREENING :NO FALLS IN THE PAST YEAR CURRENT MEDICATIONS TAKING MULTIVITAMINS TABLET CHEWABLE 2 ORALLY ONCE A DAY TAKING MIRENA 20 MCG/24HR INTRAUTERINE DEVICE INTRAUTERINE TAKING GABAPENTIN 300 MG CAPSULE 1 CAPSULE ORALLY FOR PAIN THREE TIMES A DAY TAKING TIZANIDINE HCL 6 MG CAPSULE 1 TABLET NEEDED ORALLY BEFORE BEDTIME MAY REPEAT IN 6 HRS TAKING HYDROCODONE-ACETAMINOPHEN 5-325 MG TABLET 1 TABLET NEEDED ORALLY EVERY 12 HOURS NEEDED MDD2 NOT-TAKING ACETAMINOPHEN-CODEINE 300-15 MG TABLET 1 TO 2 TABLET NEEDED ORALLY FOR PAIN EVERY 6 HRS MDD 4 NOT-TAKING TYLENOL EXTRA STRENGTH 500 MG TABLET 1 TABLET NEEDED ORALLY EVERY 6 HRS, NOTES: PATIENT HAS BEEN TAKING 3 TABLETS EVERY 6 HOURS DISCONTINUED TIZANIDINE HCL 4 MG TABLET 1 TABLET NEEDED ORALLY EVERY 8 HRS MEDICATION LIST REVIEWED AND RECONCILED WITH THE PATIENT PAST MEDICAL HISTORY HTN ARTHRITIS HEADACHES OBESITY CHRONIC PAIN RHUMATOID ARTHRITIS ALLERGIES CYMBALTA: DEPRESSION AND SELF-HARM: SIDE EFFECTS SURGICAL HISTORY GASTRIC BYPASS [id number] CHOLECYSTECTOMY FAMILY HISTORY FATHER: , DIAGNOSED WITH HEART DISEASE MOTHER: ALIVE, DIAGNOSED WITH DIABETES, HEART DISEASE 1 SON(S) - HEALTHY. SOCIAL HISTORY GENERAL: TOBACCO USE ARE YOU A:NONSMOKER LUNG CANCER SCREENING SMOKING STATUS:NON SMOKER BMI CARE GOAL FOLLOW-UP ABOVE NORMAL BMI FOLLOW-UPDIETARY MANAGEMENT EDUCATION, GUIDANCE, AND COUNSELING ALCOHOL SCREENING DID YOU HAVE A DRINK CONTAINING ALCOHOL IN THE PAST YEAR?NO POINTS0 INTERPRETATIONNEGATIVE RECREATIONAL DRUG USE DRUG USE?NO CAFFEINE CAFFEINE USE?NO SEXUAL HX HAD SEX IN THE LAST 12 MONTHS (VAGINAL, ORAL, OR ANAL)?NO HIV / HEP-C SCREENING HIV TEST OFFERED TO PATIENT:YES DATE OFFERED:07/14/2016 TEST ACCEPTED:NO REASON:PATIENT DECLINED HEP-C TEST OFFERED TO PATIENT:YES DATE OFFERED:07/14/2016 TEST ACCEPTED:NO REASON:PATIENT DECLINED TENRIISM [id number] EPISCOPAL LANGUAGE LANGUAGES SPOKEN:BOTH [place] AND [place] EDUCATION LEVEL OF EDUCATION:FINISHED COLLEGE LEARNING BARRIERS / SPECIAL NEEDS BARRIERS TO LEARNING?NO HEARING IMPAIRED?NO VISION IMPAIRED?NO COGNITIVELY IMPAIRED?NO READINESS TO LEARN?YES LEARNING PREFERENCES?NO LEARNING CAPABILITIES PRESENT?YES EMOTIONAL BARRIERS?NO SPECIAL DEVICES?NO PIANO MOVER NEEDED?NO DOMESTIC VIOLENCE DO YOU FEEL SAFE IN YOUR ENVIRONMENT?YES 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 DIET: SMALL PORTIONS. EXERCISE: BEFORE ACCIDENT. OTHERS AT HOME: CHILD. PAIN CLINIC PFS, CLERGY, PUBLIC HEALTH REFERRALS PFS REFERRAL NEEDED?NO CLERGY REFERRAL NEEDED?NO PUBLIC HEALTH REFERRAL NEEDED?NO WAS THE PROVIDER NOTIFIED OF ANY PERTINENT INFO? N/A HAS THE PATIENT BEEN EDUCATED REGARDING HIS/HER PLAN OF CARE?YES HAS THE PATIENT BEEN EDUCATED REGARDING PAIN, THE RISK FOR PAIN, THE IMPORTANCE OF EFFECTIVE PAIN MANAGEMENT, AND THE PAIN ASSESSMENT PROCESS?YES ADVANCE DIRECTIVE ADVANCE DIRECTIVE DISCUSSED WITH PATIENT:YES 05/14/18 PT DOES NOT HAVE ANY ADVANCED DIRECTIVES AND SHE DECLINED INFORMATION ON HCP AT THIS TIME. AD REVIEWED WITH PT 03/16/18 1346 BVREVIEWED WITH PATIENT 04/19/18 1535 JS05/14/18 REVIEWED WITH PT. AD. HOSPITALIZATION/MAJOR DIAGNOSTIC PROCEDURE ABOVE SURGERIES CHILDBIRTH REVIEW OF SYSTEMS REVIEWED BY: PROVIDER: NII ELIZONDO MD . CONSTITUTIONAL: ANY CHANGE IN YOUR MEDICAL CONDITION? NO . CHILLS NO . FEVER NO . INFECTION: DO YOU HAVE NEW INFECTIONS? NO . DO YOU HAVE HISTORY OF MRSA? NO . MUSCULOSKELETAL: ANY NEW PATTERNS OF PAIN OR NUMBNESS? NO . GASTROENTEROLOGY: ANY NEW CHANGE IN BOWEL CONTROL? NO . GENITOURINARY: ANY NEW CHANGE IN BLADDER CONTROL? NO . IS THERE A CHANCE YOU COULD BE ? NO . HEMATOLOGY/LYMPH: DO YOU TAKE ANY BLOOD THINNERS? (FOR EXAMPLE- COUMADIN, PLAVIX, AGGRENOX, PLATEL, PRADAXA, OR XARELTO) NO . WHEN WAS YOUR LAST DOSE? DATE: TIME: . NEUROLOGY: HAVE YOU FALLEN IN THE PAST 12 MONTHS? YES, FELL LAST WEEK ON THE ICE, NO INJURY . ANY NEW EXTREMITY NUMBNESS OR WEAKNESS? NO . CARDIOLOGY: DO YOU HAVE A PACEMAKER OR DEFIBRILLATOR? NO . RESPIRATORY: HAVE YOU BEEN SICK IN THE PAST WEEK? NO . FEVER NO . FLU LIKE SYMPTOMS? NO . COUGH NO . INTEGUMENTARY: DO YOU HAVE ANY RASHES OR OPEN SORES? NO . ALLERGIC/IMMUNO: ARE YOU ALLERGIC TO IV DYE? NO . ANY NEW ALLERGIES? NO . PSYCHIATRIC: DO YOU HAVE THOUGHTS OF HURTING YOURSELF OR SOMEONE ELSE? NO . ARE YOU ABUSED, NEGLECTED, OR IN AN UNSAFE ENVIRONMENT? NO . ENDOCRINOLOGY: ARE YOU DIABETIC? NO . OTHER: DO YOU NEED ANY PRESCRIPTIONS? NO . IF YES, PLEASE LIST: ____ . ANY NEW PROBLEMS WITH YOUR MEDICATIONS? NO . WHEN DID YOU LAST EAT? ____ . WHEN DID YOU LAST DRINK? ____ . WHAT DID YOU LAST DRINK? ____ . NAME OF PERSON DRIVING YOU HOME? ____ . DO YOU HAVE ANY OTHER QUESTIONS OR CONCERNS YES, GABAPENTIN NOT EFFECTIVE. THE PAST 2 DAYS SHE DIDN'T TAKE A HYDROCODONE DURING THE DAY AND HAD A LOT OF PAIN BUT SHE WANTED TO SEE IF TAKING 2 AT A TIME HELPED AND SHE DID THIS AT BEDTIME AND THE 2 DID RELIEVE THE PAIN . VITAL SIGNS WT 231.6 LBS, HT 69", BMI 34.20 INDEX, BP 137/86 MM HG, HR 79 /MIN, RR 18 /MIN, TEMP 98.2 F, OXYGEN SAT % 100%, SAFE IN ENV? (Y/N) Y, NA INITIALS TX 13:07, REVIEWED BY: ISMAEL. EXAMINATION GENERAL EXAMINATION: PATIENT IS ALERT O X 3 AND COOPERATIVE. TENDERNESS OVER MULTIPLE AREAS OF THE BODY. ASSESSMENTS MYALGIA, OTHER SITE - M79.18 (PRIMARY) TREATMENT MYALGIA, OTHER SITE CLINICAL NOTES: WE DISCUSSED SEVERAL ISSUES WITH MRS. ANDINO'S PAIN MANAGEMENT CASE. I WILL REDUCE THE TIZANIDINE FROM 6MG TO 4MG AT NIGHT. I WILL INCREASE THE GABAPENTIN TO 300MG 4 TABLETS PER DAY AND INCREASE THE HYDROCODONE TO 3 TABLETS PER DAY. ISTOP [id number] WAS REVIEWED. URINE TOXICOLOGY DONE ON 04/05/2018 SHOWS CONCURRENT RESULTS. THE PATIENT HAS AN APPOINTMENT WITH A BUSINESS SYSTEMS ADMINISTRATOR IN A FEW MONTHS TO BE EVALUATED. THE PATIENT WILL FOLLOW UP IN 5 WEEKS. INSTRUCTIONS WERE GIVEN, QUESTIONS WERE ANSWERED, PATIENT REPORTS UNDERSTANDING AND AGREES WITH THE PLAN. I, GUILLE SRIVASTAVA, DOCUMENTED THE ABOVE INFORMATION ACTING A SCRIBE FOR DR. ELIZONDO. I HAVE REVIEWED THE ABOVE DOCUMENT, WRITTEN BY GUILLE BIRMINGHAMIBAbdulaziz AND I VERIFY THAT IT IS ACCURATE. OTHERS REFILL HYDROCODONE-ACETAMINOPHEN TABLET, 5-325 MG, 1 TO 2 TABLET NEEDED, ORALLY, EVERY 12 HOURS NEEDED MDD3, 30 DAYS, 90, REFILLS 0 REFILL TIZANIDINE HCL CAPSULE, 6 MG, 1 TABLET NEEDED, ORALLY, BEFORE BEDTIME MAY REPEAT IN 6 HRS, 30 DAYS, 50, REFILLS 0 REFILL GABAPENTIN CAPSULE, 300 MG, 1 CAPSULE, ORALLY, FOUR TIMES DAILY MDD4, 30 DAYS, 120, REFILLS 1 START METAXALONE TABLET, 800 MG, 1 TABLET, ORALLY FOR SPASMS AND PAIN, BEFORE BEDTIME MDD1, 30 DAY(S), 30, REFILLS 1 PROCEDURE CODES FA211 ESTABILISHED PATIENT [facility] CHARGE [id number] CURRENT MEDS W/DOSAGES DOCUMENTED [id number] PAIN ASSESS POS TOOL F/U PLAN DOC DISPOSITION & COMMUNICATION FOLLOW UP 5 WEEKS (REASON: MULTIPLE BODY PAIN) ELECTRONICALLY SIGNED BY NII ELIZONDO MD, MD ON 05/30/2018 AT 06:55 AM EST DISCLAIMER : THIS IS A VISIT SUMMARY EXTRACTED FROM THE [employer] CHART. IT IS NOT A COPY OF THE [employer] PROGRESS NOTE. MTDD
== END ==
LOC: M PAIN 13:00
PROVIDERS: ATTEND Anesthesiology
DX: M79.18 Myalgia, other site (principal); I10 Essential (primary) hypertension; M06.9 Rheumatoid arthritis, unspecified; Z79.899 Other long term (current) drug therapy; Z88.8 Allergy status to other drugs, medicaments and biological substances; Z98.84 Bariatric surgery status

== ENCOUNTER → 2018-07-09 | Outpatient (CLI) | payer OTHER ==
[~2018-07-09] MED LIST changes: -ASCO25TA PO; +HYDR-3715 PO; -NORCOTAB PO; +VITA1TAB23 PO
--- NOTE | 2018-07-09 16:51 | REP ---
MRI brain without contrast: History: Headaches. Syncope. Comparison head CT study August 31, 2013. Comparison CT angiography of the neck 06/22/2017. Technique: Axial and sagittal imaging planes are utilized for T1 and T2-weighted scans. Sequences include spin-echo, fast spin echo, FLAIR, and diffusion weighted sequences. MRI findings: No bony calvarial lesion is seen. Craniocervical junction upper cervical cord are normal in appearance. There is no MR evidence of significant paranasal sinus disease. No intraorbital abnormality is seen. Foci of dural calcification are observed as seen on prior CT study. The lateral, third and fourth ventricles are normal in size and position. Paige-white differentiation pattern is normal above and below the tentorium. Diffusion weighted scans show no evidence to suggest acute ischemia. There is no evidence of intracranial hemorrhage. No infarct, extra-axial fluid collection, mass or midline shift is seen. There are two periventricular foci of fat T2 hyperintensity in the left frontal lobe white matter. No significant white matter lesion is seen. Impression: No acute intracranial lesion. Electronically Signed by Elias Lucio MD 07/09/2018 05:41 P
== END ==
LOC: M RAD 14:11
PROVIDERS: ATTEND Family Medicine
DX: R51 Headache (principal); R55 Syncope and collapse

== ENCOUNTER → 2018-07-09 | Outpatient (CLI) | payer OTHER ==
[2018-07-09 12:23] LABS: HEMATOCRIT 38.5 % (36.0-47.0); MEAN CORPUSCULAR HGB CONC 31.2 g/dl (32.0-36.5); MEAN CORPUSCULAR VOLUME 80.2 fl (80.0-96.0); PLATELET COUNT, AUTOMATED 338 10^3/uL (150-450); WHITE BLOOD COUNT 9.2 10^3/uL (4.0-10.0)
[2018-07-09 12:57] LABS: ALBUMIN 3.8 GM/DL (3.2-5.2); ALT/SGPT 25 U/L (12-78); BILIRUBIN,TOTAL 0.4 MG/DL (0.2-1.0); BLOOD UREA NITROGEN 13 MG/DL (7-18); CALCIUM LEVEL 8.9 MG/DL (8.5-10.1); CARBON DIOXIDE LEVEL 25 MEQ/L (21-32); CHLORIDE LEVEL 109 MEQ/L (98-107); CHOLESTEROL LEVEL 169 MG/DL (<200); CHOLESTEROL RISK RATIO 3.129 (<5); GLOMERULAR FILTRATION RATE > 60.0 (>60); GLUCOSE, FASTING 88 MG/DL (70-100); HDL CHOLESTEROL 54 MG/DL (>40); LDL CHOLESTEROL 103 MG/DL (<100); NON-HDL-C 115 MG/DL; SODIUM LEVEL 140 MEQ/L (136-145); THYROID STIMULATING HORMONE 0.931 uIU/ML (0.358-3.740); TOTAL PROTEIN 7.4 GM/DL (6.4-8.2); TRIGLYCERIDES LEVEL 60 MG/DL (<150)
[2018-07-09 12:58] LABS: TOTAL 25(OH) VITAMIN D 11.4 NG/ML (30.0-100.0)
[2018-07-09 13:17] LABS: HEMOGLOBIN A1c 5.5 %
--- NOTE | 2018-07-10 09:40 | REP ---
Clinical: Hypertension . Comparison: 06/22/2017 . Technique: PA and lateral. Findings: The mediastinum and cardiac silhouette are normal. The lung terrazas are clear and without acute consolidation, effusion, or pneumothorax. The skeletal structures are intact and normal. Impression: 1. No acute cardiopulmonary process. Electronically Signed by Don Saunders MD 07/10/2018 09:31 A
== END ==
LOC: M WUC 09:32
PROVIDERS: ATTEND Family Medicine
DX: I10 Essential (primary) hypertension (principal)

== ENCOUNTER → 2018-08-06 | Outpatient (CLI) | payer OTHER ==
--- NOTE | 2018-08-20 00:46 | ECWPNPC ---
PATIENT NAME: PHILLIP ANDINO : 1980 GENDER: FEMALE VISIT DATE: 08/06/2018 DISCHARGE DATE: 08/06/18 1448 VISIT LOCKED DATE TIME: PHYSICIAN: NII ELIZONDO MD RESOURCE: NII ELIZONDO MD REASON FOR APPOINTMENT 1. MULT. BODY PAIN 5 WEEKS HISTORY OF PRESENT ILLNESS HISTORY OF PRESENT ILLNESS: PAIN THE PATIENT DESCRIBES THE PAIN... 38 YEAR OLD FEMALE PATIENT WITH A HISTORY OF CHRONIC MULTIPLE BODY PAIN. THE PATIENT DESCRIBES THE PAIN SORE, TENDER, SHARP, AND CONTINUOUS WITH A PAIN SCORE OF 8-10/10 DEPENDING ON PHYSICAL ACTIVITY. THE PATIENT SAYS HER PAIN IS MAINLY LOCATED OVER HER BACK, ARMS, HIPS, AND LEGS. THE PATIENT IS CURRENTLY USING 3 HYDROCODONE PER DAY NEEDED, TIZANIDINE AT NIGHT, AND GABAPENTIN TO AID IN PAIN RELIEF. PATIENT DENIES UNEXPLAINABLE WEIGHT LOSS, FEVER, CHILLS, NEW CHANGES ON HER URINARY OR BOWEL CONTROL. FALL RISK SCREENING: SCREENING :NO FALLS REPORTED IN THE LAST YEAR CURRENT MEDICATIONS TAKING MULTIVITAMINS TABLET CHEWABLE 2 ORALLY ONCE A DAY TAKING MIRENA 20 MCG/24HR INTRAUTERINE DEVICE INTRAUTERINE TAKING TIZANIDINE HCL 4 MG TABLET 1 1/2 TABLET AT BEDTIME PRN, MAY REPEAT X 1 AFTER 4 HOURS ORALLY DIRECTED, NOTES: BEEN A MONTH SINCE TAKEN TAKING HYDROCODONE-ACETAMINOPHEN 5-325 MG TABLET 1 TO 2 TABLET NEEDED ORALLY EVERY 12 HOURS NEEDED MDD4 TAKING GABAPENTIN 300 MG CAPSULE 1 CAPSULE ORALLY FOUR TIMES DAILY MDD4 TAKING LISINOPRIL 10 MG TABLET 1 TABLET ORALLY ONCE A DAY NOT-TAKING METAXALONE 800 MG TABLET 1 TABLET ORALLY FOR SPASMS AND PAIN BEFORE BEDTIME MDD1 UNKNOWN ACETAMINOPHEN-CODEINE 300-15 MG TABLET 1 TO 2 TABLET NEEDED ORALLY FOR PAIN EVERY 6 HRS MDD 4 UNKNOWN TYLENOL EXTRA STRENGTH 500 MG TABLET 1 TABLET NEEDED ORALLY EVERY 6 HRS, NOTES: PATIENT HAS BEEN TAKING 3 TABLETS EVERY 6 HOURS MEDICATION LIST REVIEWED AND RECONCILED WITH THE PATIENT PAST MEDICAL HISTORY HTN ARTHRITIS HEADACHES OBESITY CHRONIC PAIN RHUMATOID ARTHRITIS ALLERGIES CYMBALTA: DEPRESSION AND SELF-HARM - SIDE EFFECTS SURGICAL HISTORY GASTRIC BYPASS [id number] CHOLECYSTECTOMY FAMILY HISTORY FATHER: , DIAGNOSED WITH HEART DISEASE MOTHER: , DIABETES, HEART DISEASE 1 SON(S) - HEALTHY. SOCIAL HISTORY GENERAL: TOBACCO USE ARE YOU A:NONSMOKER HIV / HEP-C SCREENING HIV TEST OFFERED TO PATIENT:YES DATE OFFERED:07/14/2016 TEST ACCEPTED:NO REASON:PATIENT DECLINED HEP-C TEST OFFERED TO PATIENT:YES DATE OFFERED:07/14/2016 TEST ACCEPTED:NO REASON:PATIENT DECLINED OTHERS AT HOME: CHILD. EDUCATION LEVEL OF EDUCATION:FINISHED COLLEGE DIET: SMALL PORTIONS. LANGUAGE LANGUAGES SPOKEN:BOTH [place] AND EGYPTIAN DOMESTIC VIOLENCE DO YOU FEEL SAFE IN YOUR ENVIRONMENT?YES BMI CARE GOAL FOLLOW-UP ABOVE NORMAL BMI FOLLOW-UPDIETARY MANAGEMENT EDUCATION, GUIDANCE, AND COUNSELING RECREATIONAL DRUG USE DRUG USE?NO EXERCISE: BEFORE ACCIDENT. LEARNING BARRIERS / SPECIAL NEEDS BARRIERS TO LEARNING?NO HEARING IMPAIRED?NO VISION IMPAIRED?NO COGNITIVELY IMPAIRED?NO READINESS TO LEARN?YES LEARNING PREFERENCES?NO LEARNING CAPABILITIES PRESENT?YES EMOTIONAL BARRIERS?NO SPECIAL DEVICES?NO TRANSFILL TECHNICIAN NEEDED?NO LUNG CANCER SCREENING SMOKING STATUS:NON SMOKER PAIN CLINIC PFS, CLERGY, PUBLIC HEALTH REFERRALS PFS REFERRAL NEEDED?NO CLERGY REFERRAL NEEDED?NO PUBLIC HEALTH REFERRAL NEEDED?NO WAS THE PROVIDER NOTIFIED OF ANY PERTINENT INFO? N/A HAS THE PATIENT BEEN EDUCATED REGARDING HIS/HER PLAN OF CARE?YES HAS THE PATIENT BEEN EDUCATED REGARDING PAIN, THE RISK FOR PAIN, THE IMPORTANCE OF EFFECTIVE PAIN MANAGEMENT, AND THE PAIN ASSESSMENT PROCESS?YES CAFFEINE CAFFEINE USE?NO ADVANCE DIRECTIVE ADVANCE DIRECTIVE DISCUSSED WITH PATIENT:YES PT DOES NOT HAVE ANY ADVANCED DIRECTIVES AND SHE DECLINED INFORMATION ON HCP AT THIS TIME. 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 SEXUAL HX HAD SEX IN THE LAST 12 MONTHS (VAGINAL, ORAL, OR ANAL)?NO REVIEWED WITH PT 03/16/18 1346 BVREVIEWED WITH PATIENT 04/19/18 1535 05/14/18 REVIEWED WITH PT. AD. HOSPITALIZATION/MAJOR DIAGNOSTIC PROCEDURE ABOVE SURGERIES CHILDBIRTH REVIEW OF SYSTEMS REVIEWED BY: PROVIDER: NII ELIZONDO MD . CONSTITUTIONAL: ANY CHANGE IN YOUR MEDICAL CONDITION? NO . CHILLS NO . FEVER NO . INFECTION: DO YOU HAVE NEW INFECTIONS? NO . DO YOU HAVE HISTORY OF MRSA? NO . MUSCULOSKELETAL: ANY NEW PATTERNS OF PAIN OR NUMBNESS? NO . GASTROENTEROLOGY: ANY NEW CHANGE IN BOWEL CONTROL? NO . GENITOURINARY: ANY NEW CHANGE IN BLADDER CONTROL? CONSTIPATION . IS THERE A CHANCE YOU COULD BE ? NO . HEMATOLOGY/LYMPH: DO YOU TAKE ANY BLOOD THINNERS? (FOR EXAMPLE- COUMADIN, PLAVIX, AGGRENOX, PLATEL, PRADAXA, OR XARELTO) NO . WHEN WAS YOUR LAST DOSE? DATE: TIME: . NEUROLOGY: HAVE YOU FALLEN IN THE PAST 12 MONTHS? DURING HER MOTHERS DYING SHE PASSED OUT . ANY NEW EXTREMITY NUMBNESS OR WEAKNESS? YES INCREASE PAIN AND NUMBNESS . CARDIOLOGY: DO YOU HAVE A PACEMAKER OR DEFIBRILLATOR? NO . RESPIRATORY: HAVE YOU BEEN SICK IN THE PAST WEEK? PT STATES SHE HAS HAD A COLD IN THE PAST 2 WEEKS . FEVER NO . FLU LIKE SYMPTOMS? NO . COUGH NO . INTEGUMENTARY: DO YOU HAVE ANY RASHES OR OPEN SORES? NO . ALLERGIC/IMMUNO: ARE YOU ALLERGIC TO IV DYE? NO . ANY NEW ALLERGIES? NO . PSYCHIATRIC: DO YOU HAVE THOUGHTS OF HURTING YOURSELF OR SOMEONE ELSE? NO . ARE YOU ABUSED, NEGLECTED, OR IN AN UNSAFE ENVIRONMENT? NO . ENDOCRINOLOGY: ARE YOU DIABETIC? NO . OTHER: DO YOU NEED ANY PRESCRIPTIONS? NO . IF YES, PLEASE LIST: ____ . ANY NEW PROBLEMS WITH YOUR MEDICATIONS? NO . WHEN DID YOU LAST EAT? ____ . WHEN DID YOU LAST DRINK? ____ . WHAT DID YOU LAST DRINK? ____ . NAME OF PERSON DRIVING YOU HOME? ____ . DO YOU HAVE ANY OTHER QUESTIONS OR CONCERNS NO . VITAL SIGNS WT 234 LBS, HT 69", BMI 34.55 INDEX, BP 128/84 MM HG, HR 85 /MIN, RR 18 /MIN, TEMP 97.0 F, OXYGEN SAT % 99%, SAFE IN ENV? (Y/N) YES, NA INITIALS AW 1321, REVIEWED BY: MARIELOS. EXAMINATION GENERAL EXAMINATION: PATIENT IS ALERT O X 3 AND COOPERATIVE. TENDERNESS OVER MULTIPLE AREAS OF HER BODY INCLUDING BACK, SHOULDERS, AND HIPS. MRI OF THE LUMBAR SPINE DONE ON 05/11/2015 SHOWS FACET ARTHROPATHY CHANGES. ASSESSMENTS PAIN OF MULTIPLE SITES - R52 (PRIMARY) SPONDYLOSIS OF LUMBAR REGION WITHOUT MYELOPATHY OR RADICULOPATHY - M47.816 TREATMENT PAIN OF MULTIPLE SITES CLINICAL NOTES: WE DISCUSSED SEVERAL ISSUES WITH MS. ANDINO'S PAIN MANAGEMENT CASE. THE PATIENT WILL CONTINUE USING THE HYDROCODONE FOR SOMATIC PAIN AND GABAPENTIN FOR THE NEUROPATHIC PAIN. I WILL INCREASE THE TIZANIDINE TO 6MG AT NIGHT AND THE PATIENT MAY CUT THE TABLET TO USE DURING THE DAY FOR SPASMS AND PAIN. I HAD A DISCUSSION WITH THE PATIENT ABOUT BEING REFERRED TO BEHAVIORAL HEALTH SINCE HER MOTHER RECENTLY , BUT THE PATIENT EXPRESSED THAT SHE WOULD LIKE TO WAIT FOR NOW AND WILL CONSIDER IT IN THE FUTURE. THE PATIENT WILL FOLLOW UP IN 2 MONTHS. INSTRUCTIONS WERE GIVEN, QUESTIONS WERE ANSWERED, PATIENT REPORTS UNDERSTANDING AND AGREES WITH THE PLAN. I, GUILLE SRIVASTAVA, DOCUMENTED THE ABOVE INFORMATION ACTING A SCRIBE FOR DR. ELIZONDO. I HAVE REVIEWED THE ABOVE DOCUMENT, WRITTEN BY GUILLE RANGEL AND I VERIFY THAT IT IS ACCURATE. . OTHERS REFILL TIZANIDINE HCL TABLET, 4 MG, 1 TABLET FOR SPASMS AND PAIN, ORALLY NEEDED, THREE TIMES A DAY, 30 DAYS, 80, REFILLS 0, NOTES: BEEN A MONTH SINCE TAKEN PROCEDURE CODES FA211 ESTABILISHED PATIENT [facility] FACILITY CHARGE G8427 CURRENT MEDS W/DOSAGES DOCUMENTED G8730 PAIN ASSESS POS TOOL F/U PLAN DOC DISPOSITION & COMMUNICATION FOLLOW UP 2 MONTHS ELECTRONICALLY SIGNED BY NII ELIZONDO MD, ON 08/19/2018 AT 06:45 PM EDT DISCLAIMER : THIS IS A VISIT SUMMARY EXTRACTED FROM THE [employer] CHART. IT IS NOT A COPY OF THE [employer] PROGRESS NOTE. JESS
== END ==
LOC: M PAIN 13:15
PROVIDERS: ATTEND Anesthesiology
DX: R52 Pain, unspecified (principal); M47.816 Spondylosis without myelopathy or radiculopathy, lumbar region; I10 Essential (primary) hypertension; M19.90 Unspecified osteoarthritis, unspecified site; M06.9 Rheumatoid arthritis, unspecified; Z79.899 Other long term (current) drug therapy; Z88.8 Allergy status to other drugs, medicaments and biological substances; Z98.84 Bariatric surgery status

== ENCOUNTER → 2018-09-27 | Outpatient (CLI) | payer OTHER ==
--- NOTE | 2018-09-27 12:40 | REP ---
Clinical: Arthralgia. Technique: AP, lateral, bilateral oblique views of the right and left hand. Findings: The examination is relatively normal for age. Very minimal subchondral sclerosis and trace joint space narrowing involving the bilateral interphalangeal joints noted. No further arthritic changes are appreciated. Impression: Minimal joint space narrowing at the interphalangeal joints noted bilaterally. Electronically Signed by Don Saunders MD 09/27/2018 12:32 P
[2018-09-27 17:16] LABS: BASO % 0.3 % (0.0-1.0); EOS # 0.1 10^3/uL (0.0-0.50); EOS % 1.2 % (0.0-3.0); HEMATOCRIT 39.3 % (36.0-47.0); HEMOGLOBIN 12.3 g/dl (12.0-15.5); LYMPH # 2.3 10^3/uL (1.5-4.5); LYMPH % 26.2 % (24.0-44.0); MEAN CORPUSCULAR HEMOGLOBIN 26.2 pg (27.0-33.0); MEAN CORPUSCULAR HGB CONC 31.3 g/dl (32.0-36.5); MEAN CORPUSCULAR VOLUME 83.8 fl (80.0-96.0); MONO # 0.3 10^3/uL (0.0-0.8); MONO % 3.4 % (0.0-5.0); NEUTROPHILS # 6.1 10^3/uL (1.8-7.7); NEUTROPHILS % 68.6 % (36.0-66.0); PLATELET COUNT, AUTOMATED 350 10^3/uL (150-450); RED BLOOD COUNT 4.69 10^6/uL (4.00-5.40); WHITE BLOOD COUNT 8.9 10^3/uL (4.0-10.0)
[2018-09-27 17:23] LABS: ALBUMIN 3.9 GM/DL (3.2-5.2); ALT/SGPT 27 U/L (12-78); BILIRUBIN,TOTAL 0.4 MG/DL (0.2-1.0); BLOOD UREA NITROGEN 14 MG/DL (7-18); CALCIUM LEVEL 9.2 MG/DL (8.5-10.1); CARBON DIOXIDE LEVEL 27 MEQ/L (21-32); CHLORIDE LEVEL 108 MEQ/L (98-107); CREATININE FOR GFR 0.82 MG/DL (0.55-1.30); GLOMERULAR FILTRATION RATE > 60.0 (>60); GLUCOSE, FASTING 94 MG/DL (70-100); POTASSIUM SERUM 4.2 MEQ/L (3.5-5.1); RHEUMATOID FACTOR QUANT < 10.0 IU/ML (<15.0); SODIUM LEVEL 140 MEQ/L (136-145); THYROID STIMULATING HORMONE 0.957 uIU/ML (0.358-3.740); TOTAL PROTEIN 7.7 GM/DL (6.4-8.2)
[2018-09-27 18:50] LABS: ERYTHROCYTE SEDIMENTATION RATE 26 mm/hr (0-20)
== END ==
LOC: M SMT 11:13
PROVIDERS: ATTEND Internal Medicine Rheumatology
DX: M25.541 Pain in joints of right hand (principal); M25.542 Pain in joints of left hand

== ENCOUNTER → 2018-11-28 | Outpatient (CLI) | payer OTHER ==
--- NOTE | 2018-12-07 02:22 | ECWPNPC ---
PATIENT NAME: PHILLIP ANDINO : 1980 GENDER: FEMALE VISIT DATE: 11/28/2018 DISCHARGE DATE: 11/28/18 1525 VISIT LOCKED DATE TIME: PHYSICIAN: NII ELIZONDO MD RESOURCE: NII ELIZONDO MD REASON FOR APPOINTMENT 1. 2 MOS HISTORY OF PRESENT ILLNESS HISTORY OF PRESENT ILLNESS: PAIN THE PATIENT DESCRIBES THE PAIN... 38 YEAR OLD FEMALE PATIENT WITH A HISTORY OF CHRONIC LOW BACK PAIN. THE PATIENT DESCRIBES THE PAIN SORE, SHARP, STABBING, DAILY, AND CONTINUOUS WITH A PAIN SCORE OF 6-9/10 DEPENDING ON PHYSICAL ACTIVITY. THE PATIENT STATES SHE EXPERIENCES PAIN IN MULTIPLE AREAS OF HER BODY, BUT HER LOW BACK PAIN IS HER MAIN CONCERN. THE PATIENT MENTIONS SHE WAS REFERRED TO BE SEEN BY A AFFIRMATIVE ACTION SPECIALIST, WHO HAD ORDERED TESTS THAT RESULTED IN NO RHEUMATOLOGY FACTORS FOUND THAT COULD BE CAUSING HER PAIN SO SHE WAS REFERRED BACK TO HER PRIMARY CARE PHYSICIAN. THE PATIENT SAYS SHE IS USING TIZANIDINE 4 MG TO HELP WITH SLEEP, GABAPENTIN 300 MG UP TO 4 TIMES DAILY, AND HYDROCODONE-ACETAMINOPHEN 5-325 MG NEEDED TO HELP WITH HER PAIN. PATIENT DENIES UNEXPLAINABLE WEIGHT LOSS, FEVER, CHILLS, NEW CHANGES ON HER URINARY OR BOWEL CONTROL. FALL RISK SCREENING: SCREENING :NO FALLS REPORTED IN THE LAST YEAR CURRENT MEDICATIONS TAKING MULTIVITAMINS TABLET CHEWABLE 2 ORALLY ONCE A DAY TAKING MIRENA 20 MCG/24HR INTRAUTERINE DEVICE INTRAUTERINE TAKING TIZANIDINE HCL 4 MG TABLET 1 TABLET FOR SPASMS AND PAIN ORALLY NEEDED THREE TIMES A DAY, NOTES: BEEN A MONTH SINCE TAKEN TAKING HYDROCODONE-ACETAMINOPHEN 5-325 MG TABLET 1 TO 2 TABLET NEEDED ORALLY EVERY 12 HOURS NEEDED MDD4 TAKING GABAPENTIN 300 MG CAPSULE 1 CAPSULE ORALLY FOUR TIMES DAILY MDD4 NOT-TAKING LISINOPRIL 10 MG TABLET 1 TABLET BY MOUTH ONCE A DAY NOT-TAKING METAXALONE 800 MG TABLET 1 TABLET ORALLY FOR SPASMS AND PAIN BEFORE BEDTIME MDD1 NOT-TAKING ACETAMINOPHEN-CODEINE 300-15 MG TABLET 1 TO 2 TABLET NEEDED ORALLY FOR PAIN EVERY 6 HRS MDD 4 NOT-TAKING TYLENOL EXTRA STRENGTH 500 MG TABLET 1 TABLET NEEDED ORALLY EVERY 6 HRS, NOTES: PATIENT HAS BEEN TAKING 3 TABLETS EVERY 6 HOURS MEDICATION LIST REVIEWED AND RECONCILED WITH THE PATIENT PAST MEDICAL HISTORY HTN ARTHRITIS HEADACHES OBESITY CHRONIC PAIN RHUMATOID ARTHRITIS ALLERGIES CYMBALTA: DEPRESSION AND SELF-HARM - SIDE EFFECTS SURGICAL HISTORY GASTRIC BYPASS [id number] CHOLECYSTECTOMY FAMILY HISTORY FATHER: , DIAGNOSED WITH HEART DISEASE MOTHER: , RHEUMATOID ARTHRITIS, DIABETES, HEART DISEASE 1 SON(S) - HEALTHY. PATERNAL UNCLE (1) THROAT CANCERPATERNAL UNCLE (2) SINAL CANCER. SOCIAL HISTORY GENERAL: TOBACCO USE ARE YOU A:NONSMOKER HIV / HEP-C SCREENING HIV TEST OFFERED TO PATIENT:YES DATE OFFERED:07/14/2016 TEST ACCEPTED:NO REASON:PATIENT DECLINED HEP-C TEST OFFERED TO PATIENT:YES DATE OFFERED:07/14/2016 TEST ACCEPTED:NO REASON:PATIENT DECLINED OTHERS AT HOME: CHILD. EDUCATION LEVEL OF EDUCATION:FINISHED COLLEGE DIET: SMALL PORTIONS. LANGUAGE LANGUAGES SPOKEN:BOTH [place] AND PORTUGUESE DOMESTIC VIOLENCE DO YOU FEEL SAFE IN YOUR ENVIRONMENT?YES BMI CARE GOAL FOLLOW-UP ABOVE NORMAL BMI FOLLOW-UPDIETARY MANAGEMENT EDUCATION, GUIDANCE, AND COUNSELING RECREATIONAL DRUG USE DRUG USE?NO EXERCISE: BEFORE ACCIDENT. LEARNING BARRIERS / SPECIAL NEEDS BARRIERS TO LEARNING?NO HEARING IMPAIRED?NO VISION IMPAIRED?NO COGNITIVELY IMPAIRED?NO READINESS TO LEARN?YES LEARNING PREFERENCES?NO LEARNING CAPABILITIES PRESENT?YES EMOTIONAL BARRIERS?NO SPECIAL DEVICES?NO TEXTILE MACHINERY SALES REPRESENTATIVE NEEDED?NO LUNG CANCER SCREENING SMOKING STATUS:NON SMOKER PAIN CLINIC PFS, CLERGY, PUBLIC HEALTH REFERRALS PFS REFERRAL NEEDED?NO CLERGY REFERRAL NEEDED?NO PUBLIC HEALTH REFERRAL NEEDED?NO WAS THE PROVIDER NOTIFIED OF ANY PERTINENT INFO? N/A HAS THE PATIENT BEEN EDUCATED REGARDING HIS/HER PLAN OF CARE?YES HAS THE PATIENT BEEN EDUCATED REGARDING PAIN, THE RISK FOR PAIN, THE IMPORTANCE OF EFFECTIVE PAIN MANAGEMENT, AND THE PAIN ASSESSMENT PROCESS?YES LATEX QUESTIONNAIRE LATEX ALLERGY : HAVE YOU EVER DEVELOPED ANY TYPE OF REACTION AFTER HANDLING LATEX PRODUCTS SUCH RUBBER GLOVES, CONDOMS, DIAPHRAGMS, BALLOONS, SOCKS, OR UNDERWEAR?NO LATEX ALLERGY : HAVE YOU EVER DEVELOPED ANY TYPE OF REACTION DURING OR AFTER DENTAL APPOINTMENT, VAGINAL/RECTAL EXAMINATION, SURGICAL PROCEDURE, OR ANY OTHER EXPOSURE?NO LATEX RISK : HAVE YOU EVER HAD ANY DIFFICULTY BREATHING OR HIVES AFTER EATING OR HANDLING ANY FRUITS, OR VEGETABLES; SUCH KIWI, BANANAS, STONE FRUITS, OR CHESTNUTSNO LATEX RISK : DO YOU HAVE A PREVIOUS PERSONAL HISTORY OF MORE THAN NINE SURGERIES, SPINA BIFIDA, OR REPEATED CATHERIZATIONS? NO LATEX RISK : ARE YOU FREQUENTLY EXPOSED TO LATEX PRODUCTS IN YOUR OCCUPATION?NO DATE ASKED : 11/01/2018 CAFFEINE CAFFEINE USE?NO ADVANCE DIRECTIVE ADVANCE DIRECTIVE DISCUSSED WITH PATIENT:YES PT DOES NOT HAVE ANY ADVANCED DIRECTIVES AND SHE DECLINED INFORMATION ON HCP AT THIS TIME. 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 SEXUAL HX HAD SEX IN THE LAST 12 MONTHS (VAGINAL, ORAL, OR ANAL)?NO REVIEWED WITH PT 03/16/18 1346 BVREVIEWED WITH PATIENT 04/19/18 1535 JS05/14/18 REVIEWED WITH PT. AD. HOSPITALIZATION/MAJOR DIAGNOSTIC PROCEDURE ABOVE SURGERIES CHILDBIRTH REVIEW OF SYSTEMS REVIEWED BY: PROVIDER: NII ELIZONDO MD . CONSTITUTIONAL: ANY CHANGE IN YOUR MEDICAL CONDITION? NO . CHILLS NO . FEVER NO . INFECTION: DO YOU HAVE NEW INFECTIONS? NO . DO YOU HAVE HISTORY OF MRSA? NO . MUSCULOSKELETAL: ANY NEW PATTERNS OF PAIN OR NUMBNESS? NO . GASTROENTEROLOGY: ANY NEW CHANGE IN BOWEL CONTROL? NO . GENITOURINARY: ANY NEW CHANGE IN BLADDER CONTROL? NO . IS THERE A CHANCE YOU COULD BE ? NO . HEMATOLOGY/LYMPH: DO YOU TAKE ANY BLOOD THINNERS? (FOR EXAMPLE- COUMADIN, PLAVIX, AGGRENOX, PLATEL, PRADAXA, OR XARELTO) NO . WHEN WAS YOUR LAST DOSE? DATE: TIME: . NEUROLOGY: HAVE YOU FALLEN IN THE PAST 12 MONTHS? YES, PRIOR TO LAST VISIT . ANY NEW EXTREMITY NUMBNESS OR WEAKNESS? YES, NUMBNESS AND WEAKNESS TO BILAT HANDS . CARDIOLOGY: DO YOU HAVE A PACEMAKER OR DEFIBRILLATOR? NO . RESPIRATORY: HAVE YOU BEEN SICK IN THE PAST WEEK? NO . FEVER NO . FLU LIKE SYMPTOMS? NO . COUGH NO . INTEGUMENTARY: DO YOU HAVE ANY RASHES OR OPEN SORES? NO . ALLERGIC/IMMUNO: ARE YOU ALLERGIC TO IV DYE? NO . ANY NEW ALLERGIES? NO . PSYCHIATRIC: DO YOU HAVE THOUGHTS OF HURTING YOURSELF OR SOMEONE ELSE? NO . ARE YOU ABUSED, NEGLECTED, OR IN AN UNSAFE ENVIRONMENT? NO . ENDOCRINOLOGY: ARE YOU DIABETIC? NO . OTHER: DO YOU NEED ANY PRESCRIPTIONS? NO . IF YES, PLEASE LIST: ____ . ANY NEW PROBLEMS WITH YOUR MEDICATIONS? NO . WHEN DID YOU LAST EAT? ____ . WHEN DID YOU LAST DRINK? ____ . WHAT DID YOU LAST DRINK? ____ . NAME OF PERSON DRIVING YOU HOME? ____ . DO YOU HAVE ANY OTHER QUESTIONS OR CONCERNS NO . VITAL SIGNS WT 234.4 LBS, HT 69", BMI 34.61 INDEX, BP 131/70 MM HG, HR 82 /MIN, RR 18 /MIN, TEMP 97.6 F, OXYGEN SAT % 99%, NA INITIALS AW 1406. EXAMINATION GENERAL EXAMINATION: PATIENT IS ALERT O X 3 AND COOPERATIVE. TENDERNESS IN THE LOW BACK AREA, BUTTOCKS, HIPS, AND MULTIPLE AREAS OF HER BODY. ASSESSMENTS PAIN OF MULTIPLE SITES - R52 (PRIMARY) MYALGIA, OTHER SITE - M79.18 TREATMENT PAIN OF MULTIPLE SITES CLINICAL NOTES: WE DISCUSSED SEVERAL ISSUES WITH MS. ANDINO'S PAIN MANAGEMENT CASE. I REFILLED THE PATIENT'S TIZANIDINE 4 MG, HYDROCODONE-ACETAMINOPHEN 5-325 MG, AND GABAPENTIN 300 MG AT TODAY'S VISIT. ISTOP __# [id number] WAS REVIEWED. URINE TOXICOLOGY DONE ON 04/05/2018 SHOWS CONCURRENT RESULTS. ANOTHER UTOX WILL BE PERFORMED TODAY. I EXPLAINED TO THE PATIENT THAT OUR CLINIC IS NOW CONCENTRATING MAINLY ON INTERVENTIONAL THERAPY, THEREFORE I AM REFERRING HER TO PALLIATIVE CARE PROGRAM TO CONSIDER CONTINUING HER MEDICATION MANAGEMENT. THE PATIENT WILL FOLLOW UP WITH THE NURSE PRACTITIONER IN 2 MONTHS. INSTRUCTIONS WERE GIVEN, QUESTIONS WERE ANSWERED, PATIENT REPORTS UNDERSTANDING AND AGREES WITH THE PLAN. I, ILANA VALDEZ, DOCUMENTED THE ABOVE INFORMATION ACTING A SCRIBE FOR DR. ELIZONDO. I HAVE REVIEWED THE ABOVE DOCUMENT, WRITTEN BY ILANA RANGEL AND I VERIFY THAT IT IS ACCURATE. . OTHERS REFILL TIZANIDINE HCL TABLET, 4 MG, 1 TABLET FOR SPASMS AND PAIN, ORALLY NEEDED, THREE TIMES A DAY, 30 DAYS, 80, REFILLS 0, NOTES: BEEN A MONTH SINCE TAKEN REFILL HYDROCODONE-ACETAMINOPHEN TABLET, 5-325 MG, 1 TO 2 TABLET NEEDED, ORALLY, EVERY 12 HOURS NEEDED MDD4, 30 DAYS, 90, REFILLS 0 REFILL GABAPENTIN CAPSULE, 300 MG, 1 CAPSULE, ORALLY, FOUR TIMES DAILY MDD4, 30 DAYS, 120, REFILLS 1 PROCEDURE CODES FA211 ESTABILISHED PATIENT [facility] FACILITY CHARGE G8427 CURRENT MEDS W/DOSAGES DOCUMENTED G8730 PAIN ASSESS POS TOOL F/U PLAN DOC DISPOSITION & COMMUNICATION FOLLOW UP 2 MONTHS (REASON: W/ PANTOGRAPH WATCHER, REFERRING TO PALLIATIVE CARE FOR MED MANAGE) ELECTRONICALLY SIGNED BY NII ELIZONDO MD, MD ON 12/06/2018 AT 11:17 AM EDT DISCLAIMER : THIS IS A VISIT SUMMARY EXTRACTED FROM THE [employer] CHART. IT IS NOT A COPY OF THE [employer] PROGRESS NOTE. JESS
== END ==
LOC: M PAIN 14:30
PROVIDERS: ATTEND Anesthesiology
DX: M54.5 Low back pain (principal); M79.18 Myalgia, other site; I10 Essential (primary) hypertension; M19.90 Unspecified osteoarthritis, unspecified site; Z98.84 Bariatric surgery status; Z88.8 Allergy status to other drugs, medicaments and biological substances; Z79.899 Other long term (current) drug therapy

== ENCOUNTER 2019-03-30 13:54 | Emergency (ER) | payer OTHER ==
[2019-03-30] MEDS ORDERED: OXYC10TA3 (14:11)
[2019-03-30] MEDS ORDERED: LISI10TA4 (14:11)
[2019-03-30] MEDS ORDERED: GABA-843 (14:11)
[2019-03-30] MEDS ORDERED: TIZA4TAB4 (14:11)
[2019-03-30] MEDS ORDERED: ALPR0.5T3 (14:11)
[2019-03-30] MEDS ORDERED: METH1TAB40 (14:11)
[2019-03-30] MEDS ORDERED: FLUO20CA19 (14:11)
[2019-03-30] MEDS ORDERED: ACETAMINOPHEN 325 MG TAB PO ONE (14:30)
[2019-03-30] MEDS ORDERED: METOCLOPRAMIDE INJ 10MG/2ML VIAL (J2765) IV ONE (14:30)
[2019-03-30] MEDS ORDERED: NS 1,000 ML IV ONE ×2 (14:30→16:15)
[2019-03-30 14:58] LABS: BASO % 0.2 % (0.0-1.0); EOS # 0.1 10^3/uL (0.0-0.5); EOS % 1.1 % (0.0-3.0); HEMATOCRIT 39.7 % (36.0-47.0); HEMOGLOBIN 12.3 g/dl (12.0-15.5); LYMPH # 0.3 10^3/uL (1.5-5.0); LYMPH % 3.9 % (24.0-44.0); MEAN CORPUSCULAR HEMOGLOBIN 24.8 pg (27.0-33.0); MONO # 0.4 10^3/uL (0.0-0.8); MONO % 4.5 % (0.0-5.0); NEUTROPHILS # 7.7 10^3/uL (1.5-8.5); NEUTROPHILS % 90.1 % (36.0-66.0); PLATELET COUNT, AUTOMATED 247 10^3/uL (150-450); RED BLOOD COUNT 4.96 10^6/uL (4.00-5.40); WHITE BLOOD COUNT 8.5 10^3/uL (4.0-10.0)
[2019-03-30 15:25] LABS: ERYTHROCYTE SEDIMENTATION RATE 21 mm/hr (0-20)
[2019-03-30 15:26] LABS: ALBUMIN 3.9 GM/DL (3.2-5.2); ALT/SGPT 19 U/L (12-78); BILIRUBIN,TOTAL 0.3 MG/DL (0.2-1.0); BLOOD UREA NITROGEN 8 MG/DL (7-18); CARBON DIOXIDE LEVEL 24 MEQ/L (21-32); CHLORIDE LEVEL 107 MEQ/L (98-107); CREATININE FOR GFR 0.69 MG/DL (0.55-1.30); GLOMERULAR FILTRATION RATE > 60.0 (>60); GLUCOSE, FASTING 93 MG/DL (70-100); HCG, SERUM QUALITATIVE NEGATIVE (NEGATIVE); POTASSIUM SERUM 4.2 MEQ/L (3.5-5.1); SODIUM LEVEL 139 MEQ/L (136-145); TOTAL PROTEIN 7.5 GM/DL (6.4-8.2)
[2019-03-30] MEDS ORDERED: KETOROLAC 30 MG/ML VIAL (J1885) IV ONE (16:00)
[2019-03-30] MEDS ORDERED: dexameTHASONE 20 MG/5 ML VIAL (J1100) IV ONE (16:30)
[2019-03-30 17:05] LABS: INFLUENZA A AMPLIFICATION NEGATIVE (NEGATIVE); INFLUENZA B AMPLIFICATION POSITIVE (NEGATIVE)
[2019-03-30] MEDS ORDERED: OSEL75CA PO (17:22)
[2019-03-30] MEDS ORDERED: OSELTAMIVIR PHOSPHATE 75 MG CAP (TAMIFLU) PO ONE (17:30)
[2019-03-30 18:04] VITALS: BP 116/76
== END 2019-03-30 18:15 | disposition home or self-care (01) ==
LOC: EDBD 13:54 → M ED 13:54
DX: J10.1 Influenza due to other identified influenza virus with other respiratory manifestations (principal); I10 Essential (primary) hypertension; Z79.84 Long term (current) use of oral hypoglycemic drugs; Z79.891 Long term (current) use of opiate analgesic; Z79.899 Other long term (current) drug therapy
CPT/HCPCS: 36415; 80053; 84703; 85025; 85652; 87502; 96361; 96374; 96375; 99284; J1100; J1885; J2765

== ENCOUNTER → 2019-06-14 | Outpatient (CLI) | payer OTHER ==
[~2019-06-14] MED LIST changes: +ALPR0.5T3; +FLUO20CA22; +GABA-843; +LISI10TA4; +METH1TAB40; +OSEL75CA PO; +OXYC10TA3; +TIZA4TAB4
--- NOTE | 2019-06-28 00:49 | ECWPNPC ---
PATIENT NAME: PHILLIP ANDINO : 1980 GENDER: FEMALE VISIT DATE: 06/14/2019 DISCHARGE DATE: 06/14/19 1731 VISIT LOCKED DATE TIME: PHYSICIAN: NII ELIZONDO MD RESOURCE: NII ELIZONDO MD REASON FOR APPOINTMENT 1. PER DR ELIZONDO HISTORY OF PRESENT ILLNESS HISTORY OF PRESENT ILLNESS: PAIN THE PATIENT DESCRIBES THE PAIN... 39 YEAR OLD FEMALE PATIENT WITH A HISTORY OF CHRONIC MULTIPLE BODY PAIN. THE PATIENT DESCRIBES THE PAIN SORE, TENDER, SHARP, STABBING, AND DAILY WITH A PAIN SCORE OF 8-10/10 DEPENDING ON PHYSICAL ACTIVITY. THE PATIENT EXPLAINED THAT SHE VISITED [place], BUT HAD LEFT HER MEDICATION IN [place]. THE PATIENT SAYS SHE FELT SOMETHING WAS NOT RIGHT SINCE SHE EXPERIENCED NAUSEA, ANXIETY, DISCOMFORT, AND RESTLESSNESS WITHOUT HER MEDICATION, SO UPON RETURNING TO [place], SHE DECIDED TO THROW AWAY HER MEDICATION. THE PATIENT SAYS THE REASON WHY SHE THREW AWAY THE MEDICATION IS BECAUSE SHE FELT SHE MIGHT HAVE DEPENDED ON THE MEDICATION TOO MUCH AND THAT MAY BE WHY SHE EXPERIENCED THE SIDE EFFECTS. THE PATIENT SAYS SHE IS BEING SEEN BY [facility] PALLIATIVE CARE STAR PROGRAM. PATIENT DENIES UNEXPLAINABLE WEIGHT LOSS, FEVER, CHILLS, NEW CHANGES ON HER URINARY OR BOWEL CONTROL. PATIENT DENIES ABUSE OF MEDICATION. FALL RISK SCREENING: SCREENING :NO FALLS REPORTED IN THE LAST YEAR CURRENT MEDICATIONS TAKING MULTIVITAMINS TABLET CHEWABLE 2 ORALLY ONCE A DAY TAKING MIRENA 20 MCG/24HR INTRAUTERINE DEVICE INTRAUTERINE TAKING GABAPENTIN 300 MG CAPSULE 1 CAPSULE ORALLY FOUR TIMES DAILY MDD4 TAKING TIZANIDINE HCL 4 MG TABLET 1 TABLET FOR SPASMS AND PAIN ORALLY NEEDED TID PRN TAKING LISINOPRIL 10 MG TABLET 1 TABLET BY MOUTH ONCE A DAY TAKING TYLENOL EXTRA STRENGTH 500 MG TABLET 1 TABLET NEEDED ORALLY EVERY 6 HRS NOT-TAKING METAXALONE 800 MG TABLET 1 TABLET ORALLY FOR SPASMS AND PAIN BEFORE BEDTIME MDD1 NOT-TAKING ACETAMINOPHEN-CODEINE 300-15 MG TABLET 1 TO 2 TABLET NEEDED ORALLY FOR PAIN EVERY 6 HRS MDD 4 UNKNOWN HYDROCODONE-ACETAMINOPHEN 5-325 MG TABLET 1 TABLET NEEDED ORALLY PRN MDD 5 MEDICATION LIST REVIEWED AND RECONCILED WITH THE PATIENT PAST MEDICAL HISTORY HTN ARTHRITIS HEADACHES OBESITY CHRONIC PAIN RHUMATOID ARTHRITIS ALLERGIES CYMBALTA: DEPRESSION AND SELF-HARM - SIDE EFFECTS SURGICAL HISTORY GASTRIC BYPASS [id number] CHOLECYSTECTOMY FAMILY HISTORY FATHER: , DIAGNOSED WITH UNSPECIFIED HEART DISEASE MOTHER: , RHEUMATOID ARTHRITIS, UNSPECIFIED HEART DISEASE, DIABETES 1 SON(S) - HEALTHY. PATERNAL UNCLE (1) THROAT CANCERPATERNAL UNCLE (2) SINAL CANCER. SOCIAL HISTORY GENERAL: TOBACCO USE ARE YOU A:NONSMOKER HIV / HEP-C SCREENING HIV TEST OFFERED TO PATIENT:YES DATE OFFERED:07/14/2016 TEST ACCEPTED:NO HEP-C TEST OFFERED TO PATIENT:YES DATE OFFERED:07/14/2016 REASON:PATIENT DECLINED TEST ACCEPTED:NO REASON:PATIENT DECLINED OTHERS AT HOME: CHILD. EDUCATION LEVEL OF EDUCATION:FINISHED COLLEGE DIET: SMALL PORTIONS. LANGUAGE LANGUAGES SPOKEN:BOTH CROATIAN AND CROATIAN DOMESTIC VIOLENCE DO YOU FEEL SAFE IN YOUR ENVIRONMENT?YES BMI CARE GOAL FOLLOW-UP ABOVE NORMAL BMI FOLLOW-UPDIETARY MANAGEMENT EDUCATION, GUIDANCE, AND COUNSELING RECREATIONAL DRUG USE DRUG USE?NO EXERCISE: BEFORE ACCIDENT. LEARNING BARRIERS / SPECIAL NEEDS BARRIERS TO LEARNING?NO HEARING IMPAIRED?NO VISION IMPAIRED?NO COGNITIVELY IMPAIRED?NO READINESS TO LEARN?YES LEARNING PREFERENCES?NO LEARNING CAPABILITIES PRESENT?YES EMOTIONAL BARRIERS?NO SPECIAL DEVICES?NO LEARNING OFFICER NEEDED?NO LUNG CANCER SCREENING SMOKING STATUS:NON SMOKER PAIN CLINIC PFS, CLERGY, PUBLIC HEALTH REFERRALS PFS REFERRAL NEEDED?NO CLERGY REFERRAL NEEDED?NO PUBLIC HEALTH REFERRAL NEEDED?NO WAS THE PROVIDER NOTIFIED OF ANY PERTINENT INFO? N/A HAS THE PATIENT BEEN EDUCATED REGARDING HIS/HER PLAN OF CARE?YES HAS THE PATIENT BEEN EDUCATED REGARDING PAIN, THE RISK FOR PAIN, THE IMPORTANCE OF EFFECTIVE PAIN MANAGEMENT, AND THE PAIN ASSESSMENT PROCESS?YES LATEX QUESTIONNAIRE LATEX ALLERGY : HAVE YOU EVER DEVELOPED ANY TYPE OF REACTION AFTER HANDLING LATEX PRODUCTS SUCH RUBBER GLOVES, CONDOMS, DIAPHRAGMS, BALLOONS, SOCKS, OR UNDERWEAR?NO LATEX ALLERGY : HAVE YOU EVER DEVELOPED ANY TYPE OF REACTION DURING OR AFTER DENTAL APPOINTMENT, VAGINAL/RECTAL EXAMINATION, SURGICAL PROCEDURE, OR ANY OTHER EXPOSURE?NO DATE ASKED : 11/01/2018 LATEX RISK : HAVE YOU EVER HAD ANY DIFFICULTY BREATHING OR HIVES AFTER EATING OR HANDLING ANY FRUITS, OR VEGETABLES; SUCH KIWI, BANANAS, STONE FRUITS, OR CHESTNUTSNO LATEX RISK : DO YOU HAVE A PREVIOUS PERSONAL HISTORY OF MORE THAN NINE SURGERIES, SPINA BIFIDA, OR REPEATED CATHERIZATIONS? NO LATEX RISK : ARE YOU FREQUENTLY EXPOSED TO LATEX PRODUCTS IN YOUR OCCUPATION?NO CAFFEINE CAFFEINE USE?NO ADVANCE DIRECTIVE ADVANCE DIRECTIVE DISCUSSED WITH PATIENT:YES PT DOES NOT HAVE ANY ADVANCED DIRECTIVES AND SHE DECLINED INFORMATION ON HCP AT THIS TIME. 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 SEXUAL HX HAD SEX IN THE LAST 12 MONTHS (VAGINAL, ORAL, OR ANAL)?NO REVIEWED WITH PT 03/16/18 1346 BVREVIEWED WITH PATIENT 04/19/18 1535 JS05/14/18 REVIEWED WITH PT. AD. HOSPITALIZATION/MAJOR DIAGNOSTIC PROCEDURE ABOVE SURGERIES CHILDBIRTH REVIEW OF SYSTEMS REVIEWED BY: PROVIDER: NII ELIZONDO MD . CONSTITUTIONAL: ANY CHANGE IN YOUR MEDICAL CONDITION? NO . CHILLS NO . FEVER NO . INFECTION: DO YOU HAVE NEW INFECTIONS? NO . DO YOU HAVE HISTORY OF MRSA? NO . MUSCULOSKELETAL: ANY NEW PATTERNS OF PAIN OR NUMBNESS? NO . GASTROENTEROLOGY: ANY NEW CHANGE IN BOWEL CONTROL? NO . GENITOURINARY: ANY NEW CHANGE IN BLADDER CONTROL? NO . IS THERE A CHANCE YOU COULD BE ? NO . HEMATOLOGY/LYMPH: DO YOU TAKE ANY BLOOD THINNERS? (FOR EXAMPLE- COUMADIN, PLAVIX, AGGRENOX, PLATEL, PRADAXA, OR XARELTO) NO . WHEN WAS YOUR LAST DOSE? DATE: TIME: . NEUROLOGY: HAVE YOU FALLEN IN THE PAST 12 MONTHS? NO . ANY NEW EXTREMITY NUMBNESS OR WEAKNESS? NO . CARDIOLOGY: DO YOU HAVE A PACEMAKER OR DEFIBRILLATOR? NO . RESPIRATORY: HAVE YOU BEEN SICK IN THE PAST WEEK? NO . FEVER NO . FLU LIKE SYMPTOMS? NO . COUGH NO . INTEGUMENTARY: DO YOU HAVE ANY RASHES OR OPEN SORES? NO . ALLERGIC/IMMUNO: ARE YOU ALLERGIC TO IV DYE? NO . ANY NEW ALLERGIES? NO . PSYCHIATRIC: DO YOU HAVE THOUGHTS OF HURTING YOURSELF OR SOMEONE ELSE? NO . ARE YOU ABUSED, NEGLECTED, OR IN AN UNSAFE ENVIRONMENT? NO . ENDOCRINOLOGY: ARE YOU DIABETIC? NO . OTHER: DO YOU NEED ANY PRESCRIPTIONS? NO . IF YES, PLEASE LIST: ____ . ANY NEW PROBLEMS WITH YOUR MEDICATIONS? NO . WHEN DID YOU LAST EAT? ____ . WHEN DID YOU LAST DRINK? ____ . WHAT DID YOU LAST DRINK? ____ . NAME OF PERSON DRIVING YOU HOME? ____ . DO YOU HAVE ANY OTHER QUESTIONS OR CONCERNS NO . VITAL SIGNS WT 230.6 LBS, HT 69", BMI 34.05 INDEX, BP 139/97 MM HG, HR 76 /MIN, RR 18 /MIN, TEMP 98.6 F, OXYGEN SAT % 92%, SAFE IN ENV? (Y/N) KG, NA INITIALS AW 1510. EXAMINATION GENERAL EXAMINATION: PATIENT IS ALERT O X 3 AND COOPERATIVE. PATIENT IS IN DISTRESS AND CRYING DURING VISIT. TENDERNESS IN JOINTS OF SHOULDER, ELBOW, LOW BACK, HIPS, AND KNEES. PATIENT CAN ABDUCT UPPER EXTREMITIES TO SHOULDER LEVEL. ASSESSMENTS HISTORY OF FIBROMYALGIA - Z87.39 (PRIMARY) PAIN OF MULTIPLE SITES - R52 TREATMENT HISTORY OF FIBROMYALGIA CLINICAL NOTES: WE DISCUSSED SEVERAL ISSUES WITH MS. ANDINO'S PAIN MANAGEMENT CASE. I HAD A LONG CONVERSATION WITH THE PATIENT AND DISCUSSED THE PATIENT'S CASE WITH KORI PATEL, HER PROVIDER AT [facility] PALLI[facility]IVE C[facility] [place] PROGRAM. I WILL START THE PATIENT ON CLONIDINE HCL TABLET 0.1 MG UP TO TWO PER DAY AND MORPHINE SULFATE TABLET 15 MG NEEDED UP TO TWO PER DAY. I ADVISED THE PATIENT SHE SHOULD NOT THROW MEDICATIONS AWAY AND DISCUSSED THE COMPLEXITY OF HER CASE DUE TO PAST HISTORY OF ABUSE OF MEDICATION. I FEEL THE PATIENT NEEDS PSYCHOLOGICAL SUPPORT DUE TO HER CASE BEING COMPLICATED. I WILL CONSIDER THE USE OF BUTRANS PATCH, NSAID'S, AND MUSCLE RELAXANT WITH PSYCHOLOGICAL SUPPORT IN THE FUTURE. I WAS WITH THE PATIENT FOR MORE THAN 30 MINUTES AND MORE THAN HALF OF THAT TIME WAS SPENT DISCUSSING THE PATIENTS CASE WITH HER PALLIATIVE CARE PROVIDER, DISCUSSING OPTIONS FOR HER COMPLEX CASE, AND ADDRESSING ANY CONCERNS. THE PATIENT WILL FOLLOW UP WITH THE NURSE PRACTITIONER IN SEVERAL WEEKS. THE PATIENT WAS ADVISED TO VISIT THE ER ON THE WEEKEND IF SHE FEELS SOMETHING IS NOT RIGHT. INSTRUCTIONS WERE GIVEN, QUESTIONS WERE ANSWERED, PATIENT REPORTS UNDERSTANDING AND AGREES WITH THE PLAN. I, ILANA VALDEZ, DOCUMENTED THE ABOVE INFORMATION ACTING A SCRIBE FOR DR. ELIZONDO. I HAVE REVIEWED THE ABOVE DOCUMENT, WRITTEN BY ILANA RANGEL AND I VERIFY THAT IT IS ACCURATE. . OTHERS START CLONIDINE HCL TABLET, 0.1 MG, 1 TABLET, ORALLY, EVERY 8 HOURS NEEDED MDD2, 5 DAY(S), 10, REFILLS 0 START MORPHINE SULFATE TABLET, 15 MG, 1 TABLET NEEDED, ORALLY FOR PAIN, EVERY 8 HOURS NEEDED, 5 DAY(S), 10, REFILLS 0 PROCEDURE CODES FA211 ESTABILISHED PATIENT [facility] FACILITY CHARGE G8427 CURRENT MEDS W/DOSAGES DOCUMENTED G8730 PAIN ASSESS POS TOOL F/U PLAN DOC DISPOSITION & COMMUNICATION FOLLOW UP 4 WEEKS (REASON: F/UP WITH COMPUTER REPAIR ENGINEER) ELECTRONICALLY SIGNED BY NII ELIZONDO MD, ON 06/27/2019 AT 10:05 AM EDT DISCLAIMER : THIS IS A VISIT SUMMARY EXTRACTED FROM THE [employer] CHART. IT IS NOT A COPY OF THE [employer] PROGRESS NOTE. JESS
== END ==
LOC: M PAIN 15:00
PROVIDERS: ATTEND Anesthesiology
DX: Z87.39 Personal history of other diseases of the musculoskeletal system and connective tissue (principal); R52 Pain, unspecified

== ENCOUNTER 2020-03-09 23:43 | Emergency (ER) | payer OTHER ==
[~2020-03-09] VITALS: Ht 175.3 cm; Wt 85.5 kg
[~2020-03-09 23:43] MED LIST changes: +ASCO250T20 PO; +CYCL-707 PO; -CYCL10TA PO; -VITA1TAB23 PO
[2020-03-10] MEDS ORDERED: NORT10CA2 PO (00:06)
[2020-03-10] MEDS ORDERED: CLON-412 PO (00:06)
[2020-03-10] MEDS ORDERED: HYDR-3719 PO (00:06)
[2020-03-10] MEDS ORDERED: CHLO125TA PO (00:06)
[2020-03-10] MEDS ORDERED: NS 1,000 ML IV SCH (00:34)
--- NOTE | 2020-03-10 00:53 | ECGEPIP ---
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
[2020-03-10 01:41] LABS: BASO % 0.2 % (0.0-1.0); EOS # 0.3 10^3/uL (0.0-0.5); EOS % 3.2 % (0.0-3.0); HEMATOCRIT 33.3 % (36.0-47.0); HEMOGLOBIN 10.1 g/dl (12.0-15.5); LYMPH # 2.6 10^3/uL (1.5-5.0); LYMPH % 29.1 % (24.0-44.0); MEAN CORPUSCULAR HEMOGLOBIN 25.1 pg (27.0-33.0); MEAN CORPUSCULAR HGB CONC 30.3 g/dl (32.0-36.5); MEAN CORPUSCULAR VOLUME 82.6 fl (80.0-96.0); MONO # 0.5 10^3/uL (0.0-0.8); MONO % 5.3 % (0.0-5.0); NEUTROPHILS # 5.6 10^3/uL (1.5-8.5); PLATELET COUNT, AUTOMATED 275 10^3/uL (150-450); RED BLOOD COUNT 4.03 10^6/uL (4.00-5.40)
[2020-03-10 02:19] LABS: AMPHETAMINES LEVEL URINE NEGATIVE (NEGATIVE); BARBITURATES URINE NEGATIVE (NEGATIVE); BENZODIAZEPINES URINE NEGATIVE (NEGATIVE); CANNABINOIDS URINE NEGATIVE (NEGATIVE); COCAINE METABOLITE URINE NEGATIVE (NEGATIVE); METHADONE URINE NEGATIVE (NEGATIVE); OPIATES URINE POSITIVE (NEGATIVE); PHENCYCLIDINE URINE NEGATIVE (NEGATIVE)
[2020-03-10 02:21] LABS: HCG, SERUM QUALITATIVE NEGATIVE (NEGATIVE)
[2020-03-10 02:24] LABS: ALBUMIN 3.3 GM/DL (3.2-5.2); ALT/SGPT 17 U/L (12-78); BILIRUBIN,DIRECT < 0.1 MG/DL (0.0-0.2); BLOOD UREA NITROGEN 13 MG/DL (7-18); CALCIUM LEVEL 8.2 MG/DL (8.5-10.1); CARBON DIOXIDE LEVEL 25 MEQ/L (21-32); CHLORIDE LEVEL 109 MEQ/L (98-107); CK-MB VALUE MASS < 1.0 NG/ML (<3.6); CPK CREATINE PHOSPHOKINASE 53 U/L (26-192); CREATININE FOR GFR 0.72 MG/DL (0.55-1.30); GLOMERULAR FILTRATION RATE > 60.0 (>60); GLUCOSE, FASTING 72 MG/DL (70-100); MB/CK RELATIVE INDEX 1.89 (< OR =4); POTASSIUM SERUM 3.8 MEQ/L (3.5-5.1); SODIUM LEVEL 140 MEQ/L (136-145); TOTAL PROTEIN 6.5 GM/DL (6.4-8.2); TROPONIN I < 0.02 NG/ML (< 0.10)
[2020-03-10 02:49] LABS: BILIRUBIN,TOTAL < 0.1 MG/DL (0.2-1.0)
--- NOTE | 2020-03-10 03:27 | REPVR ---
PROCEDURE INFORMATION: Exam: XR Chest, 2 Views Exam date and time: 03/10/2020 2:57 AM Age: 39 years old Clinical indication: Cough and dyspnea; Additional info: Dyspnea/cough TECHNIQUE: Imaging protocol: XR of the chest Views: 2 views. COMPARISON: CR CHEST 2 VIEW 07/09/2018 9:49 AM FINDINGS: Lungs: Unremarkable. No consolidation. Persistent elevation of the right hemidiaphragm. Pleural space: Unremarkable. No pleural effusion. No pneumothorax. Heart/Mediastinum: Unremarkable. No cardiomegaly. Bones/joints: Unremarkable. IMPRESSION: No acute findings. Electronically signed by: Cecil Ortiz On 03/10/2020 03:27:40 AM
[2020-03-10 03:30] VITALS: BP 141/81
== END 2020-03-10 03:54 | disposition home or self-care (01) ==
LOC: M ED 23:43
DX: R00.2 Palpitations (principal); I10 Essential (primary) hypertension; M06.9 Rheumatoid arthritis, unspecified; R51.9 Headache, unspecified; E66.9 Obesity, unspecified; G89.29 Other chronic pain; Z98.84 Bariatric surgery status; Z79.899 Other long term (current) drug therapy

== ENCOUNTER 2020-06-01 09:08 | Emergency (ER) | payer OTHER ==
[~2020-06-01] VITALS: Ht 175.3 cm; Wt 84.5 kg
[~2020-06-01 09:08] MED LIST changes: +CHLO125TA PO; +CLON-412 PO; +GABA-282; -GABA-843; +HYDR-3719 PO; +LISI10TA22; -LISI10TA4; +METH-1164; -METH1TAB40; +NORT10CA2 PO
[2020-06-01] MEDS ORDERED: KETOROLAC 30 MG/ML 1ML VIAL IV ONE (09:30)
[2020-06-01] MEDS ORDERED: NS 1,000 ML IV ONE (09:30)
[2020-06-01] MEDS ORDERED: ONDANSETRON 4MG/2ML VIAL IV ONE (09:30)
[2020-06-01] MEDS ORDERED: METOCLOPRAMIDE INJ 10MG/2ML VIAL (J2765 PER 1) As Ordered ONE (09:57)
[2020-06-01] MEDS ORDERED: METOCLOPRAMIDE INJ 10MG/2ML VIAL (J2765 PER 1) IV ONE (10:00)
[2020-06-01 10:11] LABS: BASO # 0.1 10^3/uL (0.0-0.2); BASO % 0.3 % (0.0-1.0); EOS % 0.2 % (0.0-3.0); HEMATOCRIT 42.5 % (36.0-47.0); HEMOGLOBIN 13.5 g/dl (12.0-15.5); LYMPH # 1.3 10^3/uL (1.5-5.0); MEAN CORPUSCULAR HGB CONC 31.8 g/dl (32.0-36.5); MEAN CORPUSCULAR VOLUME 78.7 fl (80.0-96.0); MONO # 0.3 10^3/uL (0.0-0.8); MONO % 1.8 % (2.0-8.0); NEUTROPHILS % 88.3 % (36.0-66.0); PLATELET COUNT, AUTOMATED 417 10^3/uL (150-450); WHITE BLOOD COUNT 14.7 10^3/uL (4.0-10.0)
[2020-06-01] MEDS ORDERED: ISOVUE-370 76% 100ML VIAL As Ordered ONE (10:26)
[2020-06-01] MEDS ORDERED: MORPHINE 4 MG/ML 1ML VIAL/SYRINGE (J2270) IV ONE (10:30)
[2020-06-01 10:39] LABS: ALBUMIN 4.3 GM/DL (3.2-5.2); BILIRUBIN,DIRECT 0.1 MG/DL (0.0-0.2); BILIRUBIN,TOTAL 0.5 MG/DL (0.2-1.0); TOTAL PROTEIN 8.5 GM/DL (6.4-8.2)
--- NOTE | 2020-06-01 11:22 | REP ---
INDICATION: upper abd pain. COMPARISON: 06/22/2017 TECHNIQUE: Axial contrast-enhanced images from the lung bases to the pubic symphysis using 100 cc Isovue 370 intravenous contrast material. Coronal and sagittal reformations obtained.. This CT examination was performed using the following dose reduction techniques: Automated exposure control, adjustment of mA and/or kv according to the patient's size, and the use of iterative reconstruction technique. FINDINGS: Lung bases are clear. Visualized heart and pericardium normal. Liver, spleen, pancreas, bilateral adrenal glands and kidneys are normal. Evidence for prior cholecystectomy and gastric bypass surgery without obvious acute associated process. The enteric system including stomach, small, and large bowel appears normal. No evidence for obstruction or acute inflammatory process. Normal terminal ileum and appendix are identified in the right lower quadrant. Pelvis demonstrates normal bladder and age-appropriate uterus/adnexa with IUD in satisfactory position. No ascites. No free air. No intraperitoneal or retroperitoneal adenopathy. Abdominal aorta and vasculature appear normal. Musculoskeletal structures are intact and without acute osseous abnormality. IMPRESSION: No acute abdominopelvic pathology appreciated. <Electronically signed by Don Saunders > 06/01/20 1115
[2020-06-01] MEDS ORDERED: PANT40TA29 PO (12:51)
[2020-06-01] MEDS ORDERED: CARA1TAB6 PO (12:51)
[2020-06-01] MEDS ORDERED: REGL10TA6 PO (12:51)
[2020-06-01] MEDS ORDERED: PERCOCET 5MG/325MG TAB PO ONE (12:55)
[2020-06-01 13:20] VITALS: BP 142/84
== END 2020-06-01 13:21 | disposition home or self-care (01) ==
LOC: M ED 09:08
DX: R10.12 Left upper quadrant pain (principal); R11.2 Nausea with vomiting, unspecified; R19.7 Diarrhea, unspecified; R06.02 Shortness of breath; R05 Cough; R51.9 Headache, unspecified; I10 Essential (primary) hypertension; G89.29 Other chronic pain; M79.605 Pain in left leg; Z98.84 Bariatric surgery status; Z79.899 Other long term (current) drug therapy
CPT/HCPCS: 74177; 80047; 80076; 81001; 83690; 84702; 85025; 96361; 96374; 96375; 99284; J1885; J2270; J2765; Q9967

== ENCOUNTER → 2021-05-05 | Outpatient (CLI) | payer OTHER ==
[~2021-05-05] MED LIST changes: +PANT40TA29 PO; +REGL10TA6 PO; +TIZA10TA; -TIZA4TAB4
[2021-05-05 07:14] LABS: HEMATOCRIT 35.1 % (36.0-47.0); HEMOGLOBIN 11.1 g/dl (12.0-15.5); MEAN CORPUSCULAR HEMOGLOBIN 25.8 pg (27.0-33.0); MEAN CORPUSCULAR HGB CONC 31.6 g/dl (32.0-36.5); MEAN CORPUSCULAR VOLUME 81.6 fl (80.0-96.0); PLATELET COUNT, AUTOMATED 332 10^3/uL (150-450); WHITE BLOOD COUNT 7.9 10^3/uL (4.0-10.0)
[2021-05-05 07:52] LABS: ALBUMIN 3.6 GM/DL (3.2-5.2); ALT/SGPT 23 U/L (12-78); BILIRUBIN,TOTAL 0.2 MG/DL (0.2-1.0); BLOOD UREA NITROGEN 11 MG/DL (7-18); CALCIUM LEVEL 8.8 MG/DL (8.5-10.1); CARBON DIOXIDE LEVEL 28 MEQ/L (21-32); CHLORIDE LEVEL 106 MEQ/L (98-107); CHOLESTEROL LEVEL 151 MG/DL (<200); CHOLESTEROL RISK RATIO 2.559 (<5); CREATININE FOR GFR 0.63 MG/DL (0.55-1.30); GLOMERULAR FILTRATION RATE > 60.0 (>58); GLUCOSE, FASTING 86 MG/DL (70-100); HDL CHOLESTEROL 59 MG/DL (>40); LDL CHOLESTEROL 78 MG/DL (<100); NON-HDL-C 92 MG/DL; POTASSIUM SERUM 4.4 MEQ/L (3.5-5.1); SODIUM LEVEL 140 MEQ/L (136-145); TOTAL PROTEIN 7.1 GM/DL (6.4-8.2); TRIGLYCERIDES LEVEL 70 MG/DL (<150)
[2021-05-05 08:42] LABS: HEMOGLOBIN A1c 5.4 %
== END ==
LOC: M LAB 05:56
PROVIDERS: ATTEND Family Medicine
DX: D64.9 Anemia, unspecified (principal); R53.83 Other fatigue; E03.9 Hypothyroidism, unspecified

== ENCOUNTER → 2021-11-29 | Outpatient (CLI) | payer OTHER ==
[~2021-11-29] MED LIST changes: +E-Z-GAS II EFFERVESCENT PACKET (SODIUM BICARB./CITRIC ACID/SIMETHICONE) As Ordered ONE; +E-Z-HD 98% w/w 340GM SUSP BTL As Ordered ONE; +E-Z-PAQUE 96% w/w SUSP 176GM BTL As Ordered ONE
== END ==
LOC: M RAD 08:01
PROVIDERS: ATTEND Surgery
DX: K21.9 Gastro-esophageal reflux disease without esophagitis (principal); R63.5 Abnormal weight gain; Z98.84 Bariatric surgery status; R20.8 Other disturbances of skin sensation; T40.2X5A Adverse effect of other opioids, initial encounter

== ENCOUNTER → 2022-01-19 | Outpatient (CLI) | payer OTHER ==
[~2022-01-19] MED LIST changes: -E-Z-GAS II EFFERVESCENT PACKET (SODIUM BICARB./CITRIC ACID/SIMETHICONE) As Ordered ONE; -E-Z-HD 98% w/w 340GM SUSP BTL As Ordered ONE; -E-Z-PAQUE 96% w/w SUSP 176GM BTL As Ordered ONE
== END ==
LOC: M LABSMTC 09:24
PROVIDERS: ATTEND Surgery
DX: Z20.828 Contact with and (suspected) exposure to other viral communicable diseases (principal); Z11.59 Encounter for screening for other viral diseases

== ENCOUNTER → 2022-02-15 | Outpatient (CLI) | payer OTHER ==
[2022-02-15 09:45] LABS: BASO % 0.5 % (0.0-1.0); EOS # 0.2 10^3/uL (0.0-0.5); EOS % 2.4 % (0.0-3.0); HEMATOCRIT 38.5 % (36.0-47.0); HEMOGLOBIN 11.9 g/dl (12.0-15.5); LYMPH # 2.3 10^3/uL (1.5-5.0); LYMPH % 29.2 % (24.0-44.0); MEAN CORPUSCULAR HEMOGLOBIN 24.1 pg (27.0-33.0); MEAN CORPUSCULAR HGB CONC 30.9 g/dl (32.0-36.5); MEAN CORPUSCULAR VOLUME 78.1 fl (80.0-96.0); MONO # 0.3 10^3/uL (0.0-0.8); MONO % 4.3 % (2.0-8.0); NEUTROPHILS % 63.3 % (36.0-66.0); PLATELET COUNT, AUTOMATED 418 10^3/uL (150-450); RED BLOOD COUNT 4.93 10^6/uL (4.00-5.40); WHITE BLOOD COUNT 7.9 10^3/uL (4.0-10.0)
[2022-02-15 10:07] LABS: INR 1.02; PROTHROMBIN TIME 13.6 SECONDS (12.5-14.5)
[2022-02-15 10:09] LABS: PARTIAL THROMBOPLASTIN TIME 27.9 SECONDS (24.8-34.2)
[2022-02-15 15:30] LABS: HEMOGLOBIN A1c 5.4 % (4.0-6.0)
[2022-02-16 11:40] LABS: ALBUMIN 4.1 G/DL (3.2-5.2); ALT/SGPT 26 U/L (7.0-40); BILIRUBIN,TOTAL 0.3 MG/DL (0.3-1.2); BLOOD UREA NITROGEN 13 MG/DL (9-23); CALCIUM LEVEL 9.4 MG/DL (8.5-10.1); CARBON DIOXIDE LEVEL 26 MMOL/L (20-31); CHLORIDE LEVEL 101 MMOL/L (98-107); CHOLESTEROL LEVEL 176 MG/DL (<200); CHOLESTEROL RISK RATIO 2.84 (<5); FERRITIN 29.3 NG/ML (7.3-270.7); GLOMERULAR FILTRATION RATE > 60.0 (>58); GLUCOSE, FASTING 102 MG/DL (60-100); HDL CHOLESTEROL 61.8 MG/DL (>40); LDL CHOLESTEROL 102.4 MG/DL (<100); NON-HDL-C 114 MG/DL; SODIUM LEVEL 137 MMOL/L (136-145); TOTAL PROTEIN 7.9 G/DL (5.7-8.2); TRIGLYCERIDES LEVEL 59 MG/DL (<150); VITAMIN B12 LEVEL 662 PG/ML (211-911)
[2022-02-16 12:13] LABS: FOLATE 10.98 NG/ML (>5.4)
== END ==
LOC: M EKG 08:51
PROVIDERS: ATTEND Surgery
DX: E66.01 Morbid (severe) obesity due to excess calories (principal); Z68.36 Body mass index [BMI] 36.0-36.9, adult; Z98.84 Bariatric surgery status

== ENCOUNTER → 2022-05-06 | Outpatient (CLI) | payer OTHER | LOC: M WHC 08:27 | PROVIDERS: ATTEND Nurse Practitioner Family | DX: Z12.31 Encounter for screening mammogram for malignant neoplasm of breast (principal) ==

== ENCOUNTER → 2022-05-06 | Outpatient (REF) | payer OTHER | LOC: M SFHCWAGY 13:35 | PROVIDERS: ATTEND Nurse Practitioner Family | DX: Z12.4 Encounter for screening for malignant neoplasm of cervix (principal) ==

== ENCOUNTER → 2022-05-09 | Outpatient (CLI) | payer OTHER ==
[2022-05-09 14:06] LABS: HEPATITIS B SURFACE ANTIGEN NEGATIVE (NEGATIVE)
[2022-05-09 14:19] LABS: HIV 1&2 SCREEN CENTAUR NEGATIVE (NEGATIVE)
[2022-05-09 14:27] LABS: HEPATITIS B CORE ANTIBODY IGM NEGATIVE (NEGATIVE); HEPATITIS C VIRUS ABY INDEX 0.1 INDEX (<0.8)
== END ==
LOC: M PLALAB 10:50
PROVIDERS: ATTEND Nurse Practitioner Family
DX: Z11.3 Encounter for screening for infections with a predominantly sexual mode of transmission (principal)

== ENCOUNTER → 2022-05-18 | Outpatient (CLI) | payer OTHER | LOC: M WHC 08:02 | PROVIDERS: ATTEND Nurse Practitioner Family | DX: R92.8 Other abnormal and inconclusive findings on diagnostic imaging of breast (principal); N63.41 Unspecified lump in right breast, subareolar ==

== ENCOUNTER → 2022-06-02 | Outpatient (REF) | payer OTHER ==
[2022-06-02 18:20] LABS: BASO % 0.4 % (0.0-1.0); EOS # 0.2 10^3/uL (0.0-0.5); EOS % 2.3 % (0.0-3.0); HEMATOCRIT 39.5 % (36.0-47.0); HEMOGLOBIN 11.7 g/dl (12.0-15.5); LYMPH # 2.7 10^3/uL (1.5-5.0); LYMPH % 26.7 % (24.0-44.0); MEAN CORPUSCULAR HEMOGLOBIN 23.4 pg (27.0-33.0); MEAN CORPUSCULAR HGB CONC 29.6 g/dl (32.0-36.5); MEAN CORPUSCULAR VOLUME 79.2 fl (80.0-96.0); MONO # 0.3 10^3/uL (0.0-0.8); NEUTROPHILS # 6.9 10^3/uL (1.5-8.5); NEUTROPHILS % 67.2 % (36.0-66.0); PLATELET COUNT, AUTOMATED 400 10^3/uL (150-450); RED BLOOD COUNT 4.99 10^6/uL (4.00-5.40); WHITE BLOOD COUNT 10.3 10^3/uL (4.0-10.0)
[2022-06-02 18:24] LABS: IRON (FE) 38 UG/DL (50-170); PERCENT SATURATION 10.6 % (13.2-45.0); TOTAL IRON BINDING CAPACITY 358 UG/DL (250-425)
[2022-06-02 18:30] LABS: HEMOGLOBIN A1c 5.6 % (4.0-6.0)
[2022-06-02 18:31] LABS: ALBUMIN 3.7 G/DL (3.2-5.2); ALKALINE PHOSPHATASE 150 U/L (46-116); ALT/SGPT 22 U/L (7.0-40); AST/SGOT 15 U/L (<34); BILIRUBIN,TOTAL 0.3 MG/DL (0.3-1.2); BLOOD UREA NITROGEN 14 MG/DL (9-23); CARBON DIOXIDE LEVEL 25 MMOL/L (20-31); CHLORIDE LEVEL 105 MMOL/L (98-107); CHOLESTEROL LEVEL 179 MG/DL (<200); CHOLESTEROL RISK RATIO 2.92 (<5); CREATININE FOR GFR 0.78 MG/DL (0.55-1.30); FERRITIN 14.6 NG/ML (7.3-270.7); FOLATE 6.3 NG/ML (>5.4); GLOMERULAR FILTRATION RATE > 60.0 (>58); GLUCOSE, FASTING 135 MG/DL (60-100); HDL CHOLESTEROL 61.2 MG/DL (>40); LDL CHOLESTEROL 106.2 MG/DL (<100); NON-HDL-C 118 MG/DL; POTASSIUM SERUM 4.7 MMOL/L (3.5-5.1); SODIUM LEVEL 140 MMOL/L (136-145); THYROID STIMULATING HORMONE 1.375 uIU/ML (0.55-4.78); TOTAL 25(OH) VITAMIN D 17.1 NG/ML (20.0-100.0); TOTAL PROTEIN 7.4 G/DL (5.7-8.2); TRIGLYCERIDES LEVEL 58 MG/DL (<150); VITAMIN B12 LEVEL 213 PG/ML (211-911)
== END ==
LOC: M LAB REF 16:48
PROVIDERS: ATTEND Nurse Practitioner Family
DX: I10 Essential (primary) hypertension (principal); Z98.84 Bariatric surgery status; E66.9 Obesity, unspecified; E55.9 Vitamin D deficiency, unspecified

== ENCOUNTER 2022-12-12 19:19 | Emergency (ER) | payer OTHER ==
[~2022-12-12] VITALS: Ht 175.3 cm; Wt 117.1 kg
[2022-12-12 20:51] LABS: BASO % 0.3 % (0.0-1.0); EOS # 0.3 10^3/uL (0.0-0.5); EOS % 2.2 % (0.0-3.0); HEMATOCRIT 33.4 % (36.0-47.0); HEMOGLOBIN 10.6 g/dl (12.0-15.5); LYMPH # 1.8 10^3/uL (1.5-5.0); LYMPH % 15.4 % (24.0-44.0); MEAN CORPUSCULAR HEMOGLOBIN 24.1 pg (27.0-33.0); MEAN CORPUSCULAR HGB CONC 31.7 g/dl (32.0-36.5); MEAN CORPUSCULAR VOLUME 76.1 fl (80.0-96.0); MONO # 0.6 10^3/uL (0.0-0.8); MONO % 4.9 % (2.0-8.0); NEUTROPHILS % 76.9 % (36.0-66.0); PLATELET COUNT, AUTOMATED 399 10^3/uL (150-450); RED BLOOD COUNT 4.39 10^6/uL (4.00-5.40); WHITE BLOOD COUNT 11.8 10^3/uL (4.0-10.0)
[2022-12-12 21:08] LABS: INR 1.13; PROTHROMBIN TIME 14.2 SECONDS (12.5-14.5)
[2022-12-12 21:18] LABS: CK-MB VALUE MASS < 1.0 NG/ML (<3.6); LIPASE 30 U/L (12-53)
[2022-12-12 21:19] LABS: CPK CREATINE PHOSPHOKINASE 75 U/L (34-145); MB/CK RELATIVE INDEX 1.33 (< OR =4)
[2022-12-12 21:20] LABS: ALBUMIN 3.6 G/DL (3.2-5.2); ALKALINE PHOSPHATASE 181 U/L (46-116); ALT/SGPT 24 U/L (7.0-40); AST/SGOT 14 U/L (<34); BILIRUBIN,DIRECT 0.1 MG/DL (<0.4); BILIRUBIN,TOTAL 0.3 MG/DL (0.3-1.2); TOTAL PROTEIN 7.1 G/DL (5.7-8.2)
[2022-12-12] MEDS ORDERED: ACETAMINOPHEN TAB 650MG DOSE (2X325MG) PO ONE (21:20)
[2022-12-12] MEDS ORDERED: METOCLOPRAMIDE INJ 10MG/2ML VIAL IV ONE (21:20)
[2022-12-12] MEDS ORDERED: NS 1,000 ML IV ONE (21:20)
[2022-12-12 21:36] LABS: HCG, SERUM QUALITATIVE NEGATIVE (NEGATIVE)
[2022-12-12 22:44] LABS: CK-MB VALUE MASS < 1.0 NG/ML (<3.6)
[2022-12-12 22:48] LABS: CPK CREATINE PHOSPHOKINASE 70 U/L (34-145); MB/CK RELATIVE INDEX 1.42 (< OR =4)
[2022-12-12 23:01] VITALS: BP 147/80; TEMP 98.8; O2SAT 99
== END 2022-12-12 23:29 | disposition left against medical advice (07) ==
LOC: M ED 19:19
DX: F41.9 Anxiety disorder, unspecified (principal); I10 Essential (primary) hypertension; F32.A Depression, unspecified; M79.7 Fibromyalgia; Z98.84 Bariatric surgery status; Z79.891 Long term (current) use of opiate analgesic; Z79.811 Long term (current) use of aromatase inhibitors; Z79.899 Other long term (current) drug therapy; Z53.9 Procedure and treatment not carried out, unspecified reason
CPT/HCPCS: 71045; 80047; 80076; 82550; 82553; 83690; 84703; 85025; 85610; 93005; 93041; 94760; 96361; 96374; 99285; J2765

== ENCOUNTER → 2022-12-14 | Outpatient (REF) | payer OTHER ==
[2022-12-14 20:26] LABS: BASO % 0.3 % (0.0-1.0); EOS # 0.1 10^3/uL (0.0-0.5); EOS % 0.9 % (0.0-3.0); HEMATOCRIT 36.4 % (36.0-47.0); HEMOGLOBIN 11.1 g/dl (12.0-15.5); LYMPH # 1.9 10^3/uL (1.5-5.0); LYMPH % 14.1 % (24.0-44.0); MEAN CORPUSCULAR HEMOGLOBIN 23.7 pg (27.0-33.0); MEAN CORPUSCULAR HGB CONC 30.5 g/dl (32.0-36.5); MEAN CORPUSCULAR VOLUME 77.8 fl (80.0-96.0); MONO # 0.6 10^3/uL (0.0-0.8); MONO % 4.6 % (2.0-8.0); NEUTROPHILS # 10.8 10^3/uL (1.5-8.5); NEUTROPHILS % 79.7 % (36.0-66.0); PLATELET COUNT, AUTOMATED 438 10^3/uL (150-450); RED BLOOD COUNT 4.68 10^6/uL (4.00-5.40); WHITE BLOOD COUNT 13.5 10^3/uL (4.0-10.0)
[2022-12-14 20:58] LABS: ALBUMIN 3.7 G/DL (3.2-5.2); ALKALINE PHOSPHATASE 180 U/L (46-116); ALT/SGPT 28 U/L (7.0-40); AST/SGOT 13 U/L (<34); BILIRUBIN,TOTAL 0.2 MG/DL (0.3-1.2); BLOOD UREA NITROGEN 10 MG/DL (9-23); CALCIUM LEVEL 8.8 MG/DL (8.5-10.1); CARBON DIOXIDE LEVEL 27 MMOL/L (20-31); CHLORIDE LEVEL 103 MMOL/L (98-107); CREATININE FOR GFR 0.65 MG/DL (0.55-1.30); GLOMERULAR FILTRATION RATE > 60.0 (>58); GLUCOSE, FASTING 92 MG/DL (60-100); IRON (FE) 18 UG/DL (50-170); POTASSIUM SERUM 4.3 MMOL/L (3.5-5.1); SODIUM LEVEL 138 MMOL/L (136-145); TOTAL IRON BINDING CAPACITY 360 UG/DL (250-425); TOTAL PROTEIN 7.2 G/DL (5.7-8.2)
[2022-12-14 20:59] LABS: FERRITIN 17.9 NG/ML (7.3-270.7)
[2022-12-14 21:00] LABS: TOTAL 25(OH) VITAMIN D 21.1 NG/ML (20.0-100.0)
[2022-12-17 06:32] LABS: HEMOGLOBIN A1c 4.9 % (4.0-6.0)
== END ==
LOC: M LAB REF 17:29
PROVIDERS: ATTEND Nurse Practitioner Family
DX: E66.01 Morbid (severe) obesity due to excess calories (principal); E55.9 Vitamin D deficiency, unspecified; E61.1 Iron deficiency

== ENCOUNTER → 2023-05-31 | Outpatient (CLI) | payer OTHER | LOC: M WHC 11:29 | PROVIDERS: ATTEND Nurse Practitioner Family | DX: Z12.31 Encounter for screening mammogram for malignant neoplasm of breast (principal) ==

== ENCOUNTER → 2023-06-05 | Outpatient (REF) | payer OTHER ==
[2023-06-05 18:50] LABS: BASO % 0.7 % (0.0-1.0); EOS # 0.2 10^3/uL (0.0-0.5); EOS % 3.6 % (0.0-3.0); HEMATOCRIT 37.2 % (36.0-47.0); HEMOGLOBIN 11.6 g/dl (12.0-15.5); LYMPH # 1.9 10^3/uL (1.5-5.0); LYMPH % 33.4 % (24.0-44.0); MEAN CORPUSCULAR HEMOGLOBIN 23.4 pg (27.0-33.0); MEAN CORPUSCULAR HGB CONC 31.2 g/dl (32.0-36.5); MEAN CORPUSCULAR VOLUME 75.2 fl (80.0-96.0); MONO # 0.3 10^3/uL (0.0-0.8); MONO % 5.5 % (2.0-8.0); NEUTROPHILS # 3.3 10^3/uL (1.5-8.5); NEUTROPHILS % 56.5 % (36.0-66.0); PLATELET COUNT, AUTOMATED 362 10^3/uL (150-450); RED BLOOD COUNT 4.95 10^6/uL (4.00-5.40); WHITE BLOOD COUNT 5.8 10^3/uL (4.0-10.0)
[2023-06-05 19:17] LABS: FERRITIN 15.8 NG/ML (7.3-270.7)
[2023-06-05 19:18] LABS: ALBUMIN 3.7 G/DL (3.2-5.2); ALKALINE PHOSPHATASE 155 U/L (46-116); ALT/SGPT 16 U/L (7.0-40); AST/SGOT 13 U/L (<34); BILIRUBIN,TOTAL 0.4 MG/DL (0.3-1.2); BLOOD UREA NITROGEN 12 MG/DL (9-23); CALCIUM LEVEL 8.7 MG/DL (8.5-10.1); CARBON DIOXIDE LEVEL 26 MMOL/L (20-31); CHLORIDE LEVEL 107 MMOL/L (98-107); CHOLESTEROL LEVEL 137 MG/DL (<200); CHOLESTEROL RISK RATIO 2.88 (<5); CREATININE FOR GFR 0.85 MG/DL (0.55-1.30); GLOMERULAR FILTRATION RATE > 60.0 (>58); GLUCOSE, FASTING 89 MG/DL (60-100); HDL CHOLESTEROL 47.5 MG/DL (>40); IRON (FE) 31 UG/DL (50-170); LDL CHOLESTEROL 79.3 MG/DL (<100); NON-HDL-C 89.5 MG/DL; PERCENT SATURATION 8.8 % (13.2-45.0); POTASSIUM SERUM 4.6 MMOL/L (3.5-5.1); SODIUM LEVEL 139 MMOL/L (136-145); THYROID STIMULATING HORMONE 2.526 uIU/ML (0.55-4.78); TOTAL IRON BINDING CAPACITY 351 UG/DL (250-425); TRIGLYCERIDES LEVEL 51 MG/DL (<150)
== END ==
LOC: M LAB REF 17:57
PROVIDERS: ATTEND Nurse Practitioner Family
DX: E78.5 Hyperlipidemia, unspecified (principal); I10 Essential (primary) hypertension; E61.1 Iron deficiency

== ENCOUNTER → 2023-11-28 | Outpatient (CLI) | payer OTHER, MEDICAID ==
[~2023-11-28] MED LIST changes: +FLUO-365; -FLUO20CA22
[2023-11-28 11:18] LABS: HEMATOCRIT 39.9 % (36.0-47.0); HEMOGLOBIN 12.3 g/dl (12.0-15.5); MEAN CORPUSCULAR HGB CONC 30.8 g/dl (32.0-36.5); MEAN CORPUSCULAR VOLUME 81.1 fl (80.0-96.0); PLATELET COUNT, AUTOMATED 294 10^3/uL (150-450); RED BLOOD COUNT 4.92 10^6/uL (4.00-5.40); WHITE BLOOD COUNT 5.6 10^3/uL (4.0-10.0)
[2023-11-28 11:48] LABS: BLOOD UREA NITROGEN 12 MG/DL (9-23); CARBON DIOXIDE LEVEL 29 MMOL/L (20-31); CHLORIDE LEVEL 107 MMOL/L (98-107); GLOMERULAR FILTRATION RATE > 60.0 (>58); GLUCOSE, FASTING 80 MG/DL (60-100); POTASSIUM SERUM 4.1 MMOL/L (3.5-5.1); SODIUM LEVEL 139 MMOL/L (136-145)
== END ==
LOC: M EKG 09:58
PROVIDERS: ATTEND Physician Assistant
DX: I10 Essential (primary) hypertension (principal)

== ENCOUNTER 2023-12-26 08:49 | Observation (INO) | payer OTHER ==
[~2023-12-26] VITALS: Ht 175.3 cm; Wt 94.7 kg
[~2023-12-26 08:49] MED LIST changes: +ACET32TAB PO; +BUPR-597 PO; +BUPR1SUB5 SL; +ERGO500029 PO; +FLON1SPR NARES; +FLUC150T9 PO; +MILKSUS3 PO; +THERTAB52 PO
[2023-12-26] MEDS ORDERED: LR 1,000 ML IV SCH (09:05)
[2023-12-26] MEDS ORDERED: BUPR1FIL SL (09:59)
[2023-12-26] MEDS ORDERED: HOME MED LIST COMPLETE! XX SCH (10:05)
[2023-12-26] MEDS: HEPARIN SOD (PORCINE) 5000UNITS/ML 1ML VIAL/SYRINGE SQ ONE (11:46)
[2023-12-26] MEDS: ceFAZolin SOD 2 GM in IV 1 EA IV ONE (11:55)
[2023-12-26] MEDS ORDERED: ONDANSETRON 4MG 2ML VIAL As Ordered ONE (11:57)
[2023-12-26] MEDS ORDERED: fentaNYL 100 MCG/2 ML INJECTION As Ordered ONE (11:57)
[2023-12-26] MEDS ORDERED: propofoL 200 MG/20 ML VIAL As Ordered ONE (11:57)
[2023-12-26] MEDS ORDERED: dexmedeTOMIDine (4MCG/ML)200MCG/50ML BTL (PRECEDEX) As Ordered ONE (11:57)
[2023-12-26] MEDS ORDERED: ROCURONIUM BROMIDE 50MG/5ML VIAL As Ordered ONE (11:57)
[2023-12-26] MEDS ORDERED: MIDAZOLAM INJ 2MG/2ML VIAL As Ordered ONE (11:57)
[2023-12-26] MEDS ORDERED: LIDOCAINE 2% 100MG/5ML SDV (FOR ANES.) As Ordered ONE (11:57)
[2023-12-26] MEDS ORDERED: SUGAMMADEX SODIUM 500 MG/5 ML VIAL (BRIDION) As Ordered ONE (11:57)
[2023-12-26] MEDS ORDERED: ACETAMINOPHEN 1000MG 100ML IV BAG As Ordered ONE (11:58)
[2023-12-26] MEDS ORDERED: HYDROmorphone HCL 2MG/ML 1ML VIAL As Ordered ONE (12:17)
[2023-12-26] MEDS ORDERED: KETAMINE HCL 200MG/20ML VIAL As Ordered ONE (12:33)
[2023-12-26] MEDS: GENTAMICIN SULF 80MG/2ML VIAL As Ordered ONE (13:09)
[2023-12-26] MEDS ORDERED: METOCLOPRAMIDE INJ 10MG/2ML VIAL IV PRN (15:05)
[2023-12-26] MEDS ORDERED: ONDANSETRON 4MG 2ML VIAL IV PRN (15:05)
[2023-12-26] MEDS ORDERED: diphenhydrAMINE 50MG/ML VIAL IV PRN (15:05)
[2023-12-26] MEDS ORDERED: MEPERIDINE 25 MG/ML 1ML VIAL IV PRN (15:05)
[2023-12-26] MEDS ORDERED: FLUTICASONE PROP 0.05% NASAL SPRAY 16 GM (FLONASE) NARES PRN (15:40)
[2023-12-26] MEDS: fentaNYL 100 MCG/2 ML INJECTION IV PRN (15:55)
[2023-12-26] MEDS ORDERED: hydrALAZINE 20MG/ML 1ML VIAL IV PRN (16:00)
[2023-12-26] MEDS: oxyCODONE 5MG TAB PO PRN (16:12)
[2023-12-26] MEDS: HYDROMORPHONE HCL 0.5 MG/ 0.5 ML SYRINGE IV PRN (16:13)
[2023-12-26] MEDS: LR 1,000 ML IV SCH (16:59)
[2023-12-26 17:28] VITALS: BP 134/84; TEMP 97.5; O2SAT 99
[2023-12-26 17:58] VITALS: BP 129/86; TEMP 97.2; O2SAT 97
[2023-12-26 18:58] VITALS: BP 157/91; TEMP 97; O2SAT 99
[2023-12-26] MEDS ORDERED: NALOXONE INJ 0.4MG/1ML VIAL IV PRN (19:00)
[2023-12-26] MEDS: traMADol 50 MG TAB PO PRN (19:07)
[2023-12-26 19:31] VITALS: BP 153/94; TEMP 97.5; O2SAT 98
[2023-12-26] MEDS: ceFAZolin SOD 2 GM in IV 1 EA IV SCH (19:36)
[2023-12-26] MEDS: PERCOCET 5MG/325MG TAB PO PRN (19:58)
[2023-12-26 20:33] VITALS: BP 130/79; TEMP 97.5; O2SAT 98
[2023-12-26 21:17] VITALS: BP 127/81; TEMP 97.4; O2SAT 97
[2023-12-27] VITALS: BP 138/84; TEMP 97.8; O2SAT 99
[2023-12-27] MEDS: ONDANSETRON 4MG 2ML VIAL IV PRN (00:17)
[2023-12-27] MEDS: ACETAMINOPHEN TAB 650MG DOSE (2X325MG) PO PRN (00:17)
[2023-12-27] MEDS ORDERED: ALPRAZolam 0.25 MG TAB PO ONE (01:25)
[2023-12-27 04:34] VITALS: BP 124/83; TEMP 97; O2SAT 97
[2023-12-27 07:48] LABS: HEMATOCRIT 35.4 % (36.0-47.0); HEMOGLOBIN 11.3 g/dl (12.0-15.5); MEAN CORPUSCULAR HEMOGLOBIN 25.4 pg (27.0-33.0); MEAN CORPUSCULAR HGB CONC 31.9 g/dl (32.0-36.5); MEAN CORPUSCULAR VOLUME 79.6 fl (80.0-96.0); PLATELET COUNT, AUTOMATED 238 10^3/uL (150-450); RED BLOOD COUNT 4.45 10^6/uL (4.00-5.40); WHITE BLOOD COUNT 10.1 10^3/uL (4.0-10.0)
[2023-12-27] MEDS: buPROPion **XL** TABLET 150MG (WELLBUTRIN XL) PO SCH (08:05)
[2023-12-27 13:12] VITALS: BP 106/70; TEMP 97.2; O2SAT 99
[2023-12-27 21:42] VITALS: BP 106/69; TEMP 97.9; O2SAT 96
[2023-12-27] MEDS: oxyCODONE 5MG TAB PO ONE (22:33)
[2023-12-28 04:29] VITALS: BP 134/87; TEMP 97.9
[2023-12-28 12:00] VITALS: BP 107/68; TEMP 97.6; O2SAT 88
[2023-12-28] MEDS ORDERED: PERCOCET PO (14:12)
== END 2023-12-28 14:50 | disposition home or self-care (01) ==
LOC: M SDC 08:49 → M ED INP 08:50 → M MS5PR 16:55
PROVIDERS: ADMIT Plastic Surgery Surgery of the Hand; ATTEND Plastic Surgery Surgery of the Hand
DX: M54.07 Panniculitis affecting regions of neck and back, lumbosacral region (principal); Z98.84 Bariatric surgery status; I10 Essential (primary) hypertension; M79.7 Fibromyalgia; F41.9 Anxiety disorder, unspecified; F32.A Depression, unspecified; Z88.8 Allergy status to other drugs, medicaments and biological substances; Z79.899 Other long term (current) drug therapy
CPT/HCPCS: 15830; 15847; 36415; 81025; 85027; 88302; 96365; 96366; 96375; C9290; J0131; J0665; J0690; J1100; J1170; J1580; J2250; J2405; J3010

== ENCOUNTER 2024-11-30 18:18 | Emergency (ER) | payer OTHER ==
[~2024-11-30] VITALS: Ht 172.7 cm; Wt 73.6 kg
[~2024-11-30 18:18] MED LIST changes: -BUPR-597 PO; +BUPR-766 PO; +BUPR1FIL SL; +GABA-1172; -GABA-282; +PERCOCET PO
[2024-11-30] MEDS: ACETAMINOPHEN 500 MG TAB PO ONE (19:16)
[2024-11-30] MEDS: KETOROLAC 30 MG/ML 1 ML VIAL IM ONE (19:17)
[2024-11-30 21:51] VITALS: BP 165/87; TEMP 98.2; O2SAT 100
[2024-11-30] MEDS ORDERED: METH-1165 PO (21:57)
[2024-11-30] MEDS ORDERED: MEDR4PAK PO (21:57)
[2024-11-30] MEDS: predniSONE 20 MG TAB PO ONE (22:18)
== END 2024-11-30 22:21 | disposition home or self-care (01) ==
LOC: M ED 18:18
DX: M54.2 Cervicalgia (principal); M75.41 Impingement syndrome of right shoulder; M19.011 Primary osteoarthritis, right shoulder; Z98.84 Bariatric surgery status; Z88.8 Allergy status to other drugs, medicaments and biological substances; Z79.1 Long term (current) use of non-steroidal anti-inflammatories (NSAID); Z79.899 Other long term (current) drug therapy
CPT/HCPCS: 72040; 73030; 96372; 99283; J1885; J7512

== ENCOUNTER → 2025-02-03 | Outpatient (CLI) | payer OTHER ==
[~2025-02-03] MED LIST changes: +MEDR4PAK PO; +METH-1165 PO
[2025-02-03 11:04] LABS: PLATELET COUNT, AUTOMATED 332 10^3/uL (150-450)
[2025-02-03 11:30] LABS: CALCIUM LEVEL 9.1 MG/DL (8.5-10.1); CARBON DIOXIDE LEVEL 29.0 MMOL/L (20-31); CHLORIDE LEVEL 103.0 MMOL/L (98-107); CREATININE FOR GFR 0.84 MG/DL (0.55-1.30); GLOMERULAR FILTRATION RATE 88.4 (>58); POTASSIUM SERUM 4.1 MMOL/L (3.5-5.1); SODIUM LEVEL 138.0 MMOL/L (136-145)
== END ==
LOC: M LAB 08:40
PROVIDERS: ATTEND Plastic Surgery Surgery of the Hand
DX: Z01.818 Encounter for other preprocedural examination (principal); L98.7 Excessive and redundant skin and subcutaneous tissue

== ENCOUNTER 2025-02-06 08:55 | Day surgery (SDC) | payer OTHER ==
[~2025-02-06] VITALS: Ht 175.3 cm; Wt 73.9 kg
[~2025-02-06 08:55] MED LIST changes: +LIDOCAINE 2% 100 MG/5 ML SDV (FOR ANES.) As Ordered ONE; +MIDAZOLAM INJ 2 MG/2 ML VIAL As Ordered ONE; +ONDANSETRON 4MG/2ML VIAL As Ordered ONE; +dexAMETHasone 4 MG/ML 1 ML VIAL As Ordered ONE; +dexmedeTOMIDine (4 MCG/ML) 200 MCG/50 ML BTL As Ordered ONE
[2025-02-06] MEDS ORDERED: LR 1,000 ML IV SCH (09:40)
[2025-02-06] MEDS: ceFAZolin SOD 2 GM IV ONCE IV ONE (10:55)
[2025-02-06] MEDS ORDERED: ACETAMINOPHEN 1000MG/100ML IV BAG As Ordered ONE (11:27)
[2025-02-06] MEDS: GENTAMICIN SULF 80 MG/2 ML VIAL As Ordered ONE (12:15)
[2025-02-06] MEDS ORDERED: MORPHINE 4 MG/ML 1 ML VIAL IV PRN (13:05)
[2025-02-06] MEDS: ONDANSETRON 4MG/2ML VIAL IV PRN (13:37)
[2025-02-06] MEDS: HYDROMORPHONE HCL 0.5 MG/0.5 ML SYRINGE IV PRN (13:37)
[2025-02-06] MEDS ORDERED: OXYC1TAB23 PO (13:40)
[2025-02-06] MEDS ORDERED: HYDROmorphone HCL 2 MG/ML 1 ML VIAL As Ordered ONE (14:23)
[2025-02-06] MEDS ORDERED: ROCURONIUM BROMIDE 50MG/5ML VIAL As Ordered ONE (14:23)
[2025-02-06 15:15] VITALS: BP 139/74; TEMP 98.7; O2SAT 98
== END 2025-02-06 15:50 | disposition home or self-care (01) ==
LOC: M SDC 08:55
PROVIDERS: ATTEND Plastic Surgery Surgery of the Hand
DX: L98.7 Excessive and redundant skin and subcutaneous tissue (principal); F41.9 Anxiety disorder, unspecified; Z79.899 Other long term (current) drug therapy; M79.7 Fibromyalgia; Z98.84 Bariatric surgery status; Z88.8 Allergy status to other drugs, medicaments and biological substances; F11.20 Opioid dependence, uncomplicated
CPT/HCPCS: 15836; 88302; J0131; J0665; J0666; J0688; J1100; J1171; J1580; J2250; J2405; J2765; J3010

== ENCOUNTER → 2025-02-24 | Outpatient (CLI) | payer OTHER ==
[~2025-02-24] MED LIST changes: -LIDOCAINE 2% 100 MG/5 ML SDV (FOR ANES.) As Ordered ONE; -MIDAZOLAM INJ 2 MG/2 ML VIAL As Ordered ONE; -ONDANSETRON 4MG/2ML VIAL As Ordered ONE; +OXYC1TAB23 PO; -dexAMETHasone 4 MG/ML 1 ML VIAL As Ordered ONE; -dexmedeTOMIDine (4 MCG/ML) 200 MCG/50 ML BTL As Ordered ONE
== END ==
LOC: M RAD 13:10
PROVIDERS: ATTEND Physician Assistant
DX: M79.601 Pain in right arm (principal); M79.602 Pain in left arm; Z48.817 Encounter for surgical aftercare following surgery on the skin and subcutaneous tissue; R60.0 Localized edema